=== PATIENT | female | born 1945 | race Caucasian/White ===

== ENCOUNTER 2023-10-17 10:02 | Inpatient (IN) | payer MEDICARE, SELFPAY ==
[2023-10-17] VITALS (12 sets, daily range): BP systolic 62–153; BP diastolic 40–72; PULSE 49–129; RESP 14–22; TEMP 35.9–36.6; O2SAT 98–100; BMI 21.3; BMI 21.9
--- NOTE | ~2023-10-17 | CT_ITS ---
EXAMINATION: CT ANGIOGRAM OF THE CHEST WITH AND WITHOUT CONTRAST (CT PULMONARY ANGIOGRAM FOR PE) CLINICAL INFORMATION: Reason for Exam new onset afib weakness, dizziness, elevated ddime COMPARISON: Previous chest x-ray from earlier the same day TECHNIQUE: Prior to contrast administration, noncontrast localization images were obtained. Subsequently, multidetector volumetric imaging was performed from the thoracic inlet to below the diaphragms following the administration of 65 mL Omnipaque 350 intravenous contrast. No contrast reaction reported Sagittal, coronal, and MIP oblique sagittal reformatted images were obtained on the CT workstation, uploaded to PACS, and reviewed. This CT examination was performed using dose optimization techniques as appropriate, variously including the following: *Automated exposure control *Adjustment of mA and/or kV according to patient size (this includes techniques or standardized protocols for targeted exams where dose is matched to indication/reason for exam; i.e. extremities or head) *Use of iterative reconstruction technique Total exam dose-length product 203 mGy-cm FINDINGS: QUALITY OF STUDY/CONTRAST BOLUS: Satisfactory. PULMONARY ARTERIES: No pulmonary emboli. THORACIC AORTA: No aneurysm. LUNG: Surgical staple line seen at the right lung apex and anterior right upper lobe. Small calcified bilateral upper lobe nodule suggestive of calcified granulomas, largest measuring 4 mm in the left upper lobe. Lungs are otherwise clear. PLEURA: No pleural effusion or pneumothorax. MEDIASTINUM: Normal heart size. No pericardial effusion. No hilar or mediastinal lymphadenopathy. No evidence of septal bowing or right heart strain. CORONARY ARTERY CALCIFICATION: Mild CHEST WALL/AXILLA: No axillary or internal mammary lymphadenopathy. OSSEOUS STRUCTURES: No acute or suspicious osseous abnormality. UPPER ABDOMEN: Unremarkable. No reflux of contrast into the hepatic veins to suggest elevated right heart pressures. CT/CT angio chest PE protocol IMPRESSION: No evidence of pulmonary embolism. VTE: negative
--- NOTE | ~2023-10-17 | XR_ITS ---
EXAMINATION: XR CHEST CLINICAL INFORMATION: Cough and fever COMPARISON: None available. TECHNIQUE: Frontal view of the chest was obtained. FINDINGS: The cardiac and mediastinal contours are normal. Dense bilateral upper lobe nodules suggestive of calcified granulomas. Lungs are otherwise clear. Surgical staple lines in the right mid lung and right lung apex. No pleural effusion or pneumothorax. Degenerative changes of the spine. XR/XR chest 1V IMPRESSION: No evidence for acute disease in the chest.
--- NOTE | 2023-10-17 10:26 | ECG_ITS ---
Test Reason : DIZZINESS Blood Pressure : / mmHG Vent. Rate : 000 BPM Atrial Rate : 000 BPM P-R Int : 000 ms QRS Dur : 000 ms QT Int : 000 ms P-R-T Axes : 000 000 000 degrees QTc Int : 000 ms No QRS complexes found, no ECG analysis possible No previous ECGs available Referred By: Marilin Knapp Electronically Signed By:
--- NOTE | 2023-10-17 10:27 | ED_ITS ---
HPI - General Adult General Chief complaint: General Medical Stated complaint: dizzy low bp Time Seen by Provider: 10/17/23 10:09 Source: patient and family Mode of arrival: ambulatory Limitations: no limitations History of Present Illness ED Provider: AMANDA AREVALO narrative: 78 yo female with PMH of HTN, HLD here with c/o having fever on Friday with nausea and vomiting weakness that has resolved no diarrhea no pain. No travel or sick contacts, no rash. She denies possiblity of tick bite. She came today as she still gets dizzy when standing which happened this AM and she still feels weak - urine is concentrated. No CP/SOB. MD complaint: dizziness with standing Onset (ago): day(s) (this AM ) Radiation: non-radiation Severity: moderate Quality: dull Relieving factors: none Exacerbating factors: movement Associated symptoms: malaise and weakness Treatments prior to arrival: none Related Data Allergies Allergy/AdvReac Type Severity Reaction Status Date / Time No Known Allergies Allergy Unverified 10/17/23 10:23 Review of Systems 2 Review of Systems: Constitutional : No Fever, No Chills, No Fatigue ENT/Mouth : No sore throat, No Rhinorrhea Eyes: No Eye Pain, No Swelling, No Redness Cardiovascular : No Chest Pain, No SOB, No Dyspnea on Exertion Respiratory : No Cough, No Sputum Gastrointestinal : No Nausea, No Vomiting, No Diarrhea, No abdominal Pain Genitourinary : No Dysuria, No Urinary Frequency, No Hematuria, Musculoskeletal : No joint pain, No Myalgias, No Joint Swelling Skin : No Skin Lesions, No rash Neuro : No Weakness, No Numbness, pos Dizziness, no Headache Psych : No Anxiety/Panic, No Depression All other systems reviewed and are negative [facility] Past Medical History Attestation statement: The following information was validated with the patient. Source: old records reviewed Medical History Hyperlipidemia HTN (hypertension) Social History Social History (Updated 10/17/23 @ 10:39 by Marilin Knapp DO) Patient Tobacco Use Status: Never used Tobacco Smoked in Last 30 Days: No Use of substances other than those prescribed or required for medical reasons: No Advance Directives: No Advance Directives Information Provided: Yes Do you have a plan to hurt others: No Plan Physical Exam ED Vital Signs: Vital Signs - 24 hr 10/17/23 10:21 10/17/23 10:53 10/17/23 10:54 Temperature 97.9 F Pulse Rate 104 H 80 129 H Respiratory Rate 16 Blood Pressure 131/67 106/64 95/62 Pulse Oximetry 99 Oxygen Delivery Method Room Air 10/17/23 10:56 10/17/23 12:08 10/17/23 14:27 Temperature 97.2 F Pulse Rate 49 L 95 59 Respiratory Rate 18 22 H Blood Pressure 62/40 L 120/60 118/51 L Pulse Oximetry 100 Oxygen Delivery Method Room Air 10/17/23 14:53 10/17/23 14:55 10/17/23 14:55 Temperature Pulse Rate 61 58 58 Respiratory Rate Blood Pressure 123/61 123/61 113/59 L Pulse Oximetry Oxygen Delivery Method 10/17/23 14:58 Temperature Pulse Rate 73 Respiratory Rate Blood Pressure 126/60 Pulse Oximetry Oxygen Delivery Method BMI result Body Mass Index 21.3 Appearance: Alert. Oriented X3. No acute distress. Eyes: Pupils equal, round and reactive to light. ENT: Pharynx mildly dry MM Neck: Normal inspection. Neck supple. CVS: tachycardic and irregular heart rate and rhythm. Pulses normal. Respiratory: No respiratory distress. Breath sounds normal. Abdomen: Soft and nontender. Skin: Skin warm and dry. Normal skin color. Normal skin turgor. Extremities: No lower extremity edema. No calf ttp Neuro: Oriented X 3. No motor deficit. No sensory deficit. Course Course Course Narrative: profoundly orthostatic 2L of IVF ordered - EKG afib Reevaluation(s) Reevaluation #1: infection suspected 1238pm has UTI ceftriaxone ordered Reevaluation #2: chadsvasc 2 score is 4 aware of plan for DOAC - no contraindications going in and out of afib will start on low dose toprol now that BP has improved Medications Administered Discontinued Medications Generic Name Dose Route Start Last Admin Trade Name Freq PRN Reason Stop Dose Admin Sodium Chloride 1,000 mls @ 999 mls/hr 10/17/23 10:26 10/17/23 14:46 Ns IV 10/17/23 11:26 999 mls/hr .Q1H1M ONE Administration Sodium Chloride 1,000 mls @ 999 mls/hr 10/17/23 11:14 10/17/23 11:29 Ns IV 10/17/23 12:14 999 mls/hr .Q1H1M ONE Administration Potassium Chloride 10 meq in 100 mls @ 100 mls/hr 10/17/23 11:45 10/17/23 14:31 Potassium Chloride/H20 IV 10/17/23 13:44 100 mls/hr Q1H HELEN Administration Iohexol 100 ml 10/17/23 14:02 10/17/23 14:02 Iohexol 350 Mg/Ml 100 Ml Infus..Btl IV 10/17/23 14:03 70 ml ONCE ONE Administration Metoprolol Succinate 12.5 mg 10/17/23 13:24 10/17/23 14:55 Metoprolol Succinate Er 12.5 Mg Halftab.Er.24h PO 10/17/23 13:25 Not Given ONCE ONE Protocol Potassium Chloride 40 meq 10/17/23 11:32 10/17/23 12:33 Potassium Chloride Packet 20 Meq Packet PO 10/17/23 11:33 40 meq ONCE ONE Administration Medical Decision Making Medical Decision Making MDM Narrative: 78 yo female with PMH of HTN, HLD here with recent viral syndrome now with positional dizziness when she stands at this time no CP/SOB will need labs, EKG for tachycardia and irregular HR - IVF, orthostatic VS. She has no neuro deficits to suggest stroke. Fever resolved but UA and CXR ordered no concern for tickborne illness. Differential Diagnosis Differential Diagnoses: The differential diagnosis associated with the presentation includes dehydration, orthostatics, anemia, viral syndrome, VTE less likely no CP/SOB EKG ordered HR is irregular Admission/Observation Consideration of admission/observation: Escalation of care including admission/observation considered intermittent rapid afib with dizziness will monitor overnight on tele ortho VS did improve with fluids Consult Healthcare Provider Management of the patient was discussed with: Hospitalist (will admit) Lab Data [facility] Lab Attestation statement: I reviewed the patient's lab results. 10/17/23 10:40 10/17/23 10:40 Labs: Lab Results 10/17/23 10/17/23 10/17/23 Range/Units 10:39 10:40 11:03 WBC 7.8 (4.8-10.8) X10*3/uL RBC 4.46 (4.20-5.50) X10*6/uL Hgb 13.4 (12.0-16.0) g/dl Hct 37.3 (37.0-47.0) % MCV 83.6 (80.0-98.0) fL MCH 30.0 (27.0-33.0) pg MCHC 35.9 H (31.0-35.0) g/dl RDW 12.3 (11.0-16.0) % Plt Count 194 (160-400) X10*3/uL MPV 10.6 (9.4-12.3) fL Immature Gran % (Auto) 0.5 H (0.0-0.4) % Neut % (Auto) 75.6 H (45-73) % Lymph % (Auto) 10.7 L (20-40) % [place] % (Auto) 12.5 H (2-11) % Eos % (Auto) 0.4 (0-4) % Baso % (Auto) 0.3 (0-2) % Lymph # (Auto) 0.8 L (1.2-4.9) X10*3/uL [place] # (Auto) 1.0 (0.1-1.2) X10*3/uL Eos # (Auto) 0.0 (0.0-0.4) X10*3/uL Baso # (Auto) 0.0 (0.0-0.2) X10*3/uL Abs Immat Gran (auto) 0.04 H (0.00-0.03) X10*3/uL Absolute Neuts (auto) 5.9 (2.0-8.3) x10*3/uL Absolute Nucleated RBC 0.000 (0.0-0.012) X10*3/uL Nucleated RBC % (auto) 0.0 (0.0-0.2) /100WBC D-Dimer High Sensitivty 491 NG/ML Sodium 131 L (135-145) mmol/L Potassium 2.8 L* (3.3-5.1) mmol/L Chloride 92 L (96-108) mmol/L Carbon Dioxide 28 (22-29) mmol/L Anion Gap 14 (12-20) BUN 27 H (9-16) mg/dL Creatinine 1.40 (0.5-1.4) mg/dL Estim Creat Clear Calc 28.6 Estimated GFR 36 Random Glucose 244 H (60-115) mg/dL Lactic Acid 1.3 (0.5-2.0) mmol/L Calcium 9.9 (8.4-10.2) mg/dL Magnesium 2.0 (1.6-2.6) mg/dL Total Bilirubin 0.6 (0.0-1.0) mg/dL Direct Bilirubin 0.2 (0.0-0.5) mg/dL AST 32 H (5-31) U/L ALT 26 (0-31) U/L Alkaline Phosphatase 58 (39-117) U/L Troponin I High Sens 13.9 (<3.5-17.0) ng/L B-Natriuretic Peptide 123 H (<100) pg/mL Total Protein 7.3 (6.5-8.0) g/dL Albumin 3.7 (3.5-5.0) g/dL Lipase 26 (8-78) U/L TSH 1.60 (0.32-4.0) uIU/mL Urine Color Urine Appearance Urine pH (5.0-9.0) Ur Specific [place] (1.005-1.025) Urine Protein (Neg-Trace) mg/dL Urine Glucose (UA) (Negative) mg/dL Urine Ketones (Negative) mg/dL Urine Blood (Negative) Urine Nitrite (Negative) Ur Leukocyte Esterase (Negative) Urine RBC (0-2) /HPF Urine WBC (0-5) /HPF Ur Squamous Epith Cells (0-2) /HPF Urine Bacteria (None Seen) Hyaline Casts (0-2) /LPF Influenza Type A (PCR) NEGATIVE (Negative) Influenza Type B (PCR) NEGATIVE (Negative) RSV RNA Qual (PCR) NEGATIVE (Negative) SARS-CoV-2 RNA (RT-PCR) NEGATIVE (Negative) 10/17/23 Range/Units 12:23 WBC (4.8-10.8) X10*3/uL RBC (4.20-5.50) X10*6/uL Hgb (12.0-16.0) g/dl Hct (37.0-47.0) % MCV (80.0-98.0) fL MCH (27.0-33.0) pg MCHC (31.0-35.0) g/dl RDW (11.0-16.0) % Plt Count (160-400) X10*3/uL MPV (9.4-12.3) fL Immature Gran % (Auto) (0.0-0.4) % Neut % (Auto) (45-73) % Lymph % (Auto) (20-40) % [place] % (Auto) (2-11) % Eos % (Auto) (0-4) % Baso % (Auto) (0-2) % Lymph # (Auto) (1.2-4.9) X10*3/uL [place] # (Auto) (0.1-1.2) X10*3/uL Eos # (Auto) (0.0-0.4) X10*3/uL Baso # (Auto) (0.0-0.2) X10*3/uL Abs Immat Gran (auto) (0.00-0.03) X10*3/uL Absolute Neuts (auto) (2.0-8.3) x10*3/uL Absolute Nucleated RBC (0.0-0.012) X10*3/uL Nucleated RBC % (auto) (0.0-0.2) /100WBC D-Dimer High Sensitivty NG/ML Sodium (135-145) mmol/L Potassium (3.3-5.1) mmol/L Chloride (96-108) mmol/L Carbon Dioxide (22-29) mmol/L Anion Gap (12-20) BUN (9-16) mg/dL Creatinine (0.5-1.4) mg/dL Estim Creat Clear Calc Estimated GFR Random Glucose (60-115) mg/dL Lactic Acid (0.5-2.0) mmol/L Calcium (8.4-10.2) mg/dL Magnesium (1.6-2.6) mg/dL Total Bilirubin (0.0-1.0) mg/dL Direct Bilirubin (0.0-0.5) mg/dL AST (5-31) U/L ALT (0-31) U/L Alkaline Phosphatase (39-117) U/L Troponin I High Sens (<3.5-17.0) ng/L B-Natriuretic Peptide (<100) pg/mL Total Protein (6.5-8.0) g/dL Albumin (3.5-5.0) g/dL Lipase (8-78) U/L TSH (0.32-4.0) uIU/mL Urine Color Yellow Urine Appearance Clear Urine pH 7.5 (5.0-9.0) Ur Specific [place] 1.010 (1.005-1.025) Urine Protein 30 (1+) H (Neg-Trace) mg/dL Urine Glucose (UA) Negative (Negative) mg/dL Urine Ketones Negative (Negative) mg/dL Urine Blood Small (1+) H (Negative) Urine Nitrite Negative (Negative) Ur Leukocyte Esterase Moderate (2+) H (Negative) Urine RBC 6-10 H (0-2) /HPF Urine WBC 21-50 H (0-5) /HPF Ur Squamous Epith Cells 0-2 (0-2) /HPF Urine Bacteria Trace (None Seen) Hyaline Casts 3-5 (0-2) /LPF Influenza Type A (PCR) (Negative) Influenza Type B (PCR) (Negative) RSV RNA Qual (PCR) (Negative) SARS-CoV-2 RNA (RT-PCR) (Negative) Independent Interpretation I performed an independent interpretation of an: EKG and Plain X-Ray Interpretation: Rate: 110 Rhythm: afib [place]: left Normal QRS complex. ST T wave : no QUINTIN, nonspecific ST T wave changes ant leads qTC: 433 prior studies: no prior The study has been interpreted contemporaneously by me. . Radiology Impression Discussion of test interpretation with radiology: I have reviewed the radiologist's reading. Independent Historian Clinical information obtained from an independent historian. History obtained from or confirmed by: Spouse Discharge Plan Discharge Clinical Impression: New onset a-fib, Orthostatic hypotension, Acute hypokalemia, Acute UTI, Dizziness Patient Disposition: Admitted As Inpatient Print Language: Czech
[2023-10-17 10:48] LABS: MANUAL DIFF FLAG NO
[2023-10-17 10:49] LABS: Basophils Percent Auto 0.3 % (0-2); Eosinophils Percent Auto 0.4 % (0-4); Hematocrit 37.3 % (37.0-47.0); Hemoglobin 13.4 g/dl (12.0-16.0); Imm Gran Abs Auto 0.04 X10*3/uL (0.00-0.03); Imm Gran Pct Auto 0.5 % (0.0-0.4); Lymphocytes Absolute Auto 0.8 X10*3/uL (1.2-4.9); Lymphocytes Percent Auto 10.7 % (20-40); Mean Corpuscular HGB Conc 35.9 g/dl (31.0-35.0); Mean Corpuscular Volume 83.6 fL (80.0-98.0); Mean Platelet Volume 10.6 fL (9.4-12.3); Monocytes Percent Auto 12.5 % (2-11); Neutrophils Absolute Auto 5.9 x10*3/uL (2.0-8.3); Neutrophils Percent Auto 75.6 % (45-73); Platelet Count 194 X10*3/uL (160-400); Red Blood Count 4.46 X10*6/uL (4.20-5.50); Red Cell Distribution Width 12.3 % (11.0-16.0); White Blood Count 7.8 X10*3/uL (4.8-10.8)
[2023-10-17 11:13] LABS: Troponin-I High Sensitivity 13.9 ng/L (<3.5-17.0)
[2023-10-17 11:21] LABS: D Dimer High Sensitivity 491 NG/ML
[2023-10-17 11:23] LABS: Lactic Acid 1.3 mmol/L (0.5-2.0)
[2023-10-17 11:24] LABS: B Type Natriuretic Peptide 123 pg/mL (<100)
[2023-10-17] MEDS: 0.9 % Sodium Chloride 1,000 ML 999 ML IV ×2 (11:29→14:46)
[2023-10-17 11:30] LABS: Alanine Aminotransferase 26 U/L (0-31); Albumin Level 3.7 g/dL (3.5-5.0); Alkaline Phosphatase 58 U/L (39-117); Anion Gap 14 (12-20); Aspartate Amino Transferase 32 U/L (5-31); Bilirubin Direct 0.2 mg/dL (0.0-0.5); Bilirubin Total 0.6 mg/dL (0.0-1.0); Blood Urea Nitrogen 27 mg/dL (9-16); Calcium 9.9 mg/dL (8.4-10.2); Carbon Dioxide 28 mmol/L (22-29); Chloride 92 mmol/L (96-108); Creatinine Clr Calc Pharmacy 28.6; Estimated Glomerular Filt Rate 36; Glucose Random 244 mg/dL (60-115); Lipase 26 U/L (8-78); Potassium 2.8 mmol/L (3.3-5.1); Sodium 131 mmol/L (135-145); Total Protein 7.3 g/dL (6.5-8.0)
[2023-10-17 11:32] LABS: Influenza A PCR NEGATIVE (Negative); Influenza B PCR NEGATIVE (Negative); Resp Syncy Virus RNA Qual PCR NEGATIVE (Negative); SARS COV2 PCR INHOUSE NEGATIVE (Negative)
[2023-10-17 12:30] LABS: Appearance Urine Clear; Color Urine Yellow; Glucose Urine UA Negative (Negative); Leukocyte Esterase Urine Moderate (2+) (Negative); Nitrite Urine Negative (Negative); PH 7.5 (5.0-9.0); UMIC TRIGGER UACC YES; Urine Blood Small (1+) (Negative); Urine Ketones Negative (Negative); Urine Protein 30 (1+) mg/dL (Neg-Trace)
[2023-10-17] MEDS: Potassium Chloride Packet 20 MEQ PACKET 40 MEQ PO (12:33)
[2023-10-17 12:35] LABS: Bacteria Urine Trace (None Seen); Squamous Epithelial Cell Urine 0-2 /HPF (0-2); UACC Culture Trigger YES; WBC Urine 21-50 /HPF (0-5)
[2023-10-17] MEDS: Potassium Chloride/H20 10 MEQ/100 ML PIGGYBACK 100 MEQ IV ×2 (12:40→14:31)
[2023-10-17] MEDS: iohexoL 350 MG/ML 100 ML INFUS..BTL IV (14:02)
--- NOTE | 2023-10-17 15:21 | PM.IMHP ---
History of Present Illness Date of Service: 10/17/23 Attending physician on admission: Josef Guzman Chief Complaint: Dizziness, weakness Pt is a 78-year-old female with a PMH significant for HTN and HLD?who presents to the ED with nausea, vomiting, dizziness, and lightheadedness x4 days. Patient reports symptoms began on Friday when she experienced nausea and vomiting. Called PCP the next day who told her to keep hydrated, but patient had a hard time following this advice as she did not feel like eating or drinking and continued to experience nausea though no more vomiting. Continue to take her medications, including her hydrochlorothiazide. Patient denies any sick contacts, no recent travel, and no ingestion of suspicious foods. No diarrhea. This morning patient felt dizzy and lightheaded upon standing and had difficulty walking. Called her PCP's office again who told her to come to the ED. Denies chest pain/pressure, palpitations. No shortness a breath or difficulty breathing. Denies orthopnea. No lower leg edema. Denies fever, chills, abdominal pain. In the ED pt was tachycardic up to 129, tachypneic up to 22, and with positive orthostatics. Labs were significant for elevated D-dimer of 491, sodium 131, potassium 2.8, chloride 92, BUN 27, creatinine 1.40, random glucose 244, AST 32, and BNP mildly elevated at 123. No leukocytosis. Stable H&H. Troponin 13.9. TSH 1.6. Tested negative for flu, RSV, COVID. UA positive for leukocyte esterase, RBC 6-10, wbc's 21-50, and trace bacteria. CXR showed no evidence for acute disease. CTA of chest?negative for pulmonary embolism. EKG demonstrated atrial fibrillation with RVR of [address] depression in leads V4 and V5. Pt was treated with 2L IVF, potassium chloride 20 mEq IV and 40 mEq p.o.., ceftriaxone, and started on Eliquis. Pt will be admitted to the hospital for treatment and further evaluation of new onset AFib with RVR, hypokalemia, and positive orthostatics in the setting of dehydration from GI losses, reduced p.o. intake, and continue diuretic use. Review of Systems Review of Systems: Nausea, vomiting Reduced p.o. intake, anorexia Lightheadedness, dizziness with standing and walking Denies palpitations, chest pain/pressure No shortness a breath or difficulty breathing Denies abdominal pain, diarrhea No fever, chills [facility] Medical History Hyperlipidemia HTN (hypertension) Social History Patient Tobacco Use Status: Never used Tobacco Smoked in Last 30 Days: No Use of substances other than those prescribed or required for medical reasons: No Advance Directives: No Advance Directives Information Provided: Yes Do you have a plan to hurt others: No Plan Meds Allergies Allergy/AdvReac Type Severity Reaction Status Date / Time No Known Allergies Allergy Unverified 10/17/23 10:23 Home Medications ?Medication ?Instructions ?Recorded ?Confirmed ?Last Taken ?Type amlodipine 5 mg tablet 5 mg PO DAILY 10/17/23 10/17/23 10/16/23 History ammonium lactate 12 % lotion 1 appl topical DAILY PRN dry, 10/17/23 10/17/23 Unknown History scaly skin simvastatin 20 mg tablet 20 mg PO BEDTIME 10/17/23 10/17/23 10/16/23 History triamterene 37.5 1 tab PO DAILY 10/17/23 10/17/23 10/16/23 History mg-hydrochlorothiazide 25 mg tablet Physical Exam Vital Signs and Narrative: Vital Signs: Last Vital Signs Temp 97.2 F 10/17/23 14:27 Pulse 73 10/17/23 14:58 Resp 22 H 10/17/23 14:27 BP 126/60 10/17/23 14:58 Pulse Ox 100 10/17/23 14:27 O2 Del Method Room Air 10/17/23 14:27 BMI result Body Mass Index 21.3 Constitutional: Alert, in no acute distress. Mental Status: Oriented to person, place and time. Eyes: Pupils are equal, round, and reactive to light. Ear, Nose, and Throat: Oropharynx clear, mucous membranes moist. Ears and nose without deformities. Trachea midline. Respiratory: Clear to auscultation bilaterally. No wheezing, rales, or rhonchi. Cardiovascular: S1, S2, regular rate and rhythm. No murmurs, rubs, or gallops. Gastrointestinal: Abdomen soft, non-tender, non-distended. Normal bowel sounds. Neurologic: Cranial nerves II-XII are grossly intact bilaterally. No focal neurological deficits. Moves all extremities spontaneously. Skin: Warm, dry. Extremities: No edema. Psychiatric: Normal mood and affect. Results Labs 10/17/23 10:40 10/17/23 10:40 Labs: Laboratory Results - last 24 hr 10/17/23 10/17/23 10/17/23 10:39 10:40 11:03 MCV 83.6 MCH 30.0 MCHC 35.9 H RDW 12.3 Plt Count 194 MPV 10.6 Immature Gran % (Auto) 0.5 H Neut % (Auto) 75.6 H Lymph % (Auto) 10.7 L Cotton % (Auto) 12.5 H Eos % (Auto) 0.4 Baso % (Auto) 0.3 Lymph # (Auto) 0.8 L [place] # (Auto) 1.0 Eos # (Auto) 0.0 Baso # (Auto) 0.0 Abs Immat Gran (auto) 0.04 H Absolute Neuts (auto) 5.9 Absolute Nucleated RBC 0.000 Nucleated RBC % (auto) 0.0 D-Dimer High Sensitivty 491 Anion Gap 14 Estim Creat Clear Calc 28.6 Estimated GFR 36 Random Glucose 244 H Lactic Acid 1.3 Calcium 9.9 Magnesium 2.0 Total Bilirubin 0.6 Direct Bilirubin 0.2 AST 32 H ALT 26 Alkaline Phosphatase 58 Troponin I High Sens 13.9 B-Natriuretic Peptide 123 H Total Protein 7.3 Albumin 3.7 Lipase 26 TSH 1.60 Urine Color Urine Appearance Urine pH Ur Specific [place] Urine Protein Urine Glucose (UA) Urine Ketones Urine Blood Urine Nitrite Ur Leukocyte Esterase Urine RBC Urine WBC Ur Squamous Epith Cells Urine Bacteria Hyaline Casts Influenza Type A (PCR) NEGATIVE Influenza Type B (PCR) NEGATIVE RSV RNA Qual (PCR) NEGATIVE SARS-CoV-2 RNA (RT-PCR) NEGATIVE 10/17/23 12:23 MCV MCH MCHC RDW Plt Count MPV Immature Gran % (Auto) Neut % (Auto) Lymph % (Auto) Cotton % (Auto) Eos % (Auto) Baso % (Auto) Lymph # (Auto) Cotton # (Auto) Eos # (Auto) Baso # (Auto) Abs Immat Gran (auto) Absolute Neuts (auto) Absolute Nucleated RBC Nucleated RBC % (auto) D-Dimer High Sensitivty Anion Gap Estim Creat Clear Calc Estimated GFR Random Glucose Lactic Acid Calcium Magnesium Total Bilirubin Direct Bilirubin AST ALT Alkaline Phosphatase Troponin I High Sens B-Natriuretic Peptide Total Protein Albumin Lipase TSH Urine Color Yellow Urine Appearance Clear Urine pH 7.5 Ur Specific [place] 1.010 Urine Protein 30 (1+) H Urine Glucose (UA) Negative Urine Ketones Negative Urine Blood Small (1+) H Urine Nitrite Negative Ur Leukocyte Esterase Moderate (2+) H Urine RBC 6-10 H Urine WBC 21-50 H Ur Squamous Epith Cells 0-2 Urine Bacteria Trace Hyaline Casts 3-5 Influenza Type A (PCR) Influenza Type B (PCR) RSV RNA Qual (PCR) SARS-CoV-2 RNA (RT-PCR) Imaging Radiologist's Impressions: Impressions Chest X-Ray 10/17/23 11:18 IMPRESSION: No evidence for acute disease in the chest. Chest CTA 10/17/23 14:03 IMPRESSION: No evidence of pulmonary embolism. VTE: negative Assessment and Plan (1) Acute hypokalemia: Status: Acute (2) Orthostatic hypotension: Status: Acute (3) New onset a-fib: Status: Acute Plan Pt is a 78-year-old female with a PMH significant for HTN and HLD?who presents to the ED with nausea, vomiting, dizziness, and lightheadedness x4 days. Pt will be admitted to the hospital for treatment and further evaluation of new onset AFib with RVR, hypokalemia, and positive orthostatics in the setting of dehydration from GI losses, reduced p.o. intake, and continue diuretic use. New onset AFib with RVR EKG showed atrial fibrillation with RVR of 110, HR as high as 130-140s in the ED In ED patient self converted back to normal sinus rhythm in the 60s without use of BB Will start on Eliquis 5 mg b.i.d., chads Vasc 2 score 4 Echocardiogram Cardiology consult Monitor on telemetry Orthostatic hypotension Orthostatics positive with BP 106/64 supine and 62/40 standing In the setting of dehydration secondary to N/V, reduced p.o. intake, and continued diuretic use since Friday Patient received 2 L IVF Hold antihypertensives, diuretics Repeat orthostatics in the morning Hypokalemia Potassium 2.8 at time of presentation In the setting of dehydration secondary to N/V, reduced p.o. intake, and continued diuretic use since Friday Patient received 20 mEq IV and 40 mEq p.o. in the ED Follow BMP Hyponatremia Sodium 131 at time of presentation In the setting of dehydration secondary to N/V, reduced p.o. intake, and continued diuretic use since Friday Follow BNP Hyperglycemia Random glucose elevated at 244 at time of presentation Will check A1c HTN Hold home antihypertensives for now Resume as warranted HLD Continue statin Full Code Attending:?Dr. Guzman DVT Prophylaxis: On Eliquis Pt will require a hospitalization of at least two nights for treatment of?new onset AFib with RVR, hypokalemia, and positive orthostatic hypotension in the setting of dehydration from GI losses, reduced p.o. intake, and continued diuretic use. Patient will require close monitoring of cardiac function, labs, electrolyte replenishment, and specialist consultation with Cardiology. Quality Stroke Does the patient have a stroke diagnosis?: No VTE Prior VTE?: No VTE Risk Level:: Medical - moderate - high VTE Device Contraindication: Treatment Not Indicated VTE Drug Contraindication: N/A - Med Ordered
[2023-10-17] MEDS: cefTRIAXone sodium 1 GM in 0.9 % Sodium Chloride 50 ML IV (15:45)
[2023-10-17] MEDS: Apixaban 5 MG TABLET PO ×2 (15:46→20:56)
--- NOTE | 2023-10-17 16:40 | PHA.MEDREC ---
Pharmacy Consult ? Medication Reconciliation Pharmacy has completed the medication reconciliation. Confirmed medications with patient.
[2023-10-17] MEDS: 0.9 % Sodium Chloride Flush 3 ML SYRINGE IVFLUSH (20:58)
[2023-10-18] VITALS: BP 161/73; PULSE 60; RESP 18; TEMP 36.2; O2SAT 99
[2023-10-18 04:00] VITALS: BP 159/70; RESP 20; TEMP 36.3; O2SAT 97
[2023-10-18 07:55] LABS: Anion Gap 12 (12-20); Blood Urea Nitrogen 20 mg/dL (9-16); Calcium 9.6 mg/dL (8.4-10.2); Carbon Dioxide 28 mmol/L (22-29); Chloride 103 mmol/L (96-108); Creatinine Clr Calc Pharmacy 43.4; Estimated Glomerular Filt Rate 59; Glucose Random 126 mg/dL (60-115); Potassium 3.5 mmol/L (3.3-5.1); Sodium 139 mmol/L (135-145)
[2023-10-18 07:56] LABS: Estimated Average Glucose 117 mg/dL; Hemoglobin A1c % 5.7 % (<6.0)
[2023-10-18 08:00] VITALS: BP 141/85; BP 152/67; PULSE 60; PULSE 68; RESP 20; TEMP 36.2; O2SAT 98
[2023-10-18] MEDS: 0.9 % Sodium Chloride Flush 3 ML SYRINGE IVFLUSH (08:43)
[2023-10-18] MEDS: Apixaban 5 MG TABLET PO (08:43)
[2023-10-18 08:46] VITALS: BP 127/60; PULSE 68
[2023-10-18 08:50] VITALS: BP 103/58; PULSE 77
--- NOTE | 2023-10-18 09:43 | MHC.CM.PN ---
IMM 10/17. Pt self-care, lives at home with her who will transport her home at discharge. Pt educated on HCP's, pt stated she will think about it and declined to complete one at this time. PCP: Dr. Joy Brumfield
--- NOTE | 2023-10-18 11:30 | CA_ITS ---
Transthoracic Echocardiogram Patient (Last, First, Middle): Cecily Finnegan, Gender: Female Date of : 1945 Age: 78 Procedure Date: 10/18/2023 Procedure Type: Transthoracic Echocardiogram Location: [facility] Height: 162.56 cm Weight: 57.61 kg BSA: 1.61 m2 Heart Rate: bpm BP: 103 / 58 mmHg Material Carrier: BRITNEY Referring MD: Sujatha NASCIMENTO Physical Security Engineer: Keenan Browne MD Symptoms: New onset AFib with RVR Study Quality: Adequate ECG Rhythm: Sinus Conclusions: - 1. Normal LV ejection fraction of 60 65% with impaired relaxation filling pattern 2. Mildly dilated left atrium 3. Mild aortic and mitral regurgitation 4. Normal RV systolic pressure 5. Trivial pericardial effusion Findings Left Ventricle Normal left ventricular size, thickness, and systolic function. The visually estimated ejection fraction is between 60-65%. Spectral Doppler is indicative of an impaired relaxation filling pattern. E/E prime ratio is between 8 and 15 consistent with indeterminate filling pressures. Peak GLS is -19.4%, within normal limits. Right Ventricle Normal right ventricular cavity size and systolic function. Atria The left atrium is mildly dilated. There is no evidence of interatrial shunt. The right atrium is normal in size. Aortic Valve There is mild calcification of the aortic valve. There is mild thickening of the aortic valve. There is no aortic valve stenosis. There is mild aortic valve regurgitation. Mitral Valve There is mild anterior and moderate posterior mitral leaflet thickening. The posterior mitral leaflet has restricted mobility. There is mild mitral annular calcification. There is mild mitral valve regurgitation. There is no mitral valve stenosis. Pulmonic Valve The pulmonic valve is likely normal. Tricuspid Valve Normal tricuspid valve structure. There is mild tricuspid valve regurgitation. The right ventricular systolic pressure is normal. The right ventricular systolic pressure is 28 mmHg. Normal right atrial pressure. There is no evidence of pulmonary hypertension. Great Vessels All visible segments of the aorta are normal in size. The pulmonary artery was not well visualized. Moderate plaque is seen in the sino tubular ridge. Venous The inferior vena cava is normal in size and collapses greater than 50% with inspiration. Pericardium/Pleural There is a trivial loculated pericardial effusion overlying the left ventricle. Prior Study Comparison No prior study available for comparison. Measurements 2D Linear Measurements IVSd: 0.81 0.6-0.9/0.6-1.0 cm LVIDd: 5.30 3.9-5.3/4.2-5.9 cm LVIDd Index: 3.29 2.4-3.2/2.2-3.1 cm/m2 LVIDs: 3.40 2.0-3.6 cm LVPWd: 0.87 0.7-1.1 cm LA Diam: 3.50 2.7-3.8/3.0-4.0 cm LAIDs Index: 2.17 1.5-2.3 cm/m2 LV Mass: 197.32 67-162/88-224 g LV Mass Index: 122.56 43-95/49-115 g/m2 LVOT Diam: 2.10 3.0+(-)1.3 cm 2D Systolic Function EF 4C: 64.30 >55% EF 2C: 60.50 >55% EF BiP: 62.90 >55% Mitral Valve MV Pk E: 0.76 MV PK A: 0.66 MV Decel Time: 186.00 E/A: 1.10 E'Lateral: 7.51 E'Medial: 6.74 E/E' Med: 11.20 E/E' Lat: 10.10 PHT: 54.00 MVA PHT: 4.07 Decel Gladwin: 4.09 Aortic Valve AoV Pk Morgan: 1.97 AoV Mn Morgan: 1.40 AoV VTI: 0.49 AoV Pk Grad: 16.00 Aov Mn Grad: 9.00 ARUN Cont.VTI: 2.14 AI Pk Morgan: 4.23 AI Gladwin: 2.11 LVOT LVOT Pk Morgan: 1.16 LVOT Mn Morgan: 0.85 LVOT VTI: 0.30 LVOT Pk Grad: 5.00 LVOT Mn Grad: 3.00 LVOT Diam: 2.10 LVOT Area: 3.46 Diastolic Function MV Pk E: 0.76 MV Pk A: 0.66 E/A: 1.10 E'Medial: 6.74 E/E' Med: 11.20 E' Laterial: 7.51 E/E' Lat: 10.10 Right Ventricle TAPSE (mm): 20.70 TVS' Morgan: 12.00 Tricuspid Valve TR Pk Morgan: 2.52 TR Pk Grad: 25.00 RA Press: 3.00 RVSP: 28.00 Great Vessels Aorta Sinus of Valsalva: 2.97 2.0-3.[address] Ridge: 2.71 1.7-3.4 cm Ao Asc: 3.10 2.1-3.4 cm Updated in Other Vendor System with Status of Final Keenan Browne MD electronically signed on 10/19/2023 11:34:13 AM with status of Final
[2023-10-18 12:00] VITALS: BP 155/71; PULSE 52; RESP 20; TEMP 36.3; O2SAT 100
--- NOTE | 2023-10-18 12:50 | P.CONCA_ITS ---
History of Present Illness History of Present Illness Date of Service: 10/18/23 Requesting physician: Josef Guzman Consult reason: atrial fibrillation and other (Orthostatic hypotension) Chief complaint: New onset Afib/w- RVR, Hypokalemia, orthostatic hy Narrative: I was consulted to see Cecily in cardiology consultation today for new onset atrial fibrillation. She is extremely pleasant 78-year-old female with prior history of hypertension, no significant past cardiac history. She is accompanied by at bedside. Patient said last Friday she developed fever at 103 degrees F and significant vomiting. Over time the fever and vomiting subsided but she continued to have poor appetite and she has not eating well or drinking well. She had no urinary symptoms. She then started having symptoms of lightheadedness and then Friday her symptoms got severely worse and she got a primary care physician advised to come to the emergency room. She came here and was noted to be significant orthostatic hypotension also noted to have new onset atrial fibrillation. She was then given rate control and she converted back to sinus rhythm spontaneously. She has been started on oral anticoagulation therapy with Eliquis. She also be given IV fluids. She has been diagnose UTI. She currently feels well and wants to go home. She had no chest pain, palpitations, syncope, shortness of breath, orthopnea, PND. Does not recall ever having atrial fibrillation in the past. Review of Systems 2 Constitutional: Constitutional: Denies body ache(s), Reports fever(s) and Reports weakness Eyes: Eyes: Reports no additional eye complaints Cardiovascular: Cardiovascular: Denies chest pain, Reports lightheadedness, Denies Loss of Consciousness, Denies palpitations, Denies dyspnea, Denies dyspnea on exertion and Denies orthopnea Respiratory: Respiratory: Denies dyspnea and Denies dyspnea on exertion Gastrointestinal: Gastrointestinal: Reports no additional gastrointestinal complaints Genitourinary: Genitourinary: Reports no additional female genitourinary complaints Musculoskeletal: Musculoskeletal: Reports no additional musculoskeletal complaints Neurologic: Reports system reviewed and no additional complaints, except as documented and Reports weakness Endocrine: Endocrine: Denies palpitations PMFSH Past Medical History Medical History Hyperlipidemia HTN (hypertension) Social History Social History Household Members: Spouse Housing: House Do you presently have visiting nurse or other home services: No Patient Tobacco Use Status: Never used Tobacco Smoked in Last 30 Days: No Use of substances other than those prescribed or required for medical reasons: No Currently Displaying Signs/Symptoms of Drug Intoxication Withdrawal: No Have you been hit, kicked, punched, or otherwise hurt by someone within the past year? If so, by whom?: No Do you feel safe in your current relationship?: Yes Is there a partner from a previous relationship who is making you feel unsafe now?: No Are you made to feel afraid or neglected: No Advance Directives: No Advance Directives Information Provided: Yes Do you have a plan to hurt others: No Plan Recently lost weight without trying: No Eating poorly because of decreased appetite: No Patient : No service: No Meds Allergies Allergy/AdvReac Type Severity Reaction Status Date / Time No Known Allergies Allergy Unverified 10/17/23 10:23 Active Medications: Current Medications Acetaminophen (Acetaminophen 325 Mg Tablet) 650 mg PO Q6H PRN PRN Reason: Pain, Mild (Pain Scale 1-3), fever or headache Apixaban (Apixaban 5 Mg Tablet) 5 mg PO BID [facility] Last Admin: 10/18/23 08:43 Dose: 5 mg Benzonatate (Benzonatate 100 Mg Capsule) 100 mg PO TID PRN PRN Reason: Cough Calcium Carbonate (Calcium Carbonate 750 Mg Tab.Chew) 750 mg PO Q4H PRN PRN Reason: Heartburn Magnesium Hydroxide (Milk Of Magnesia 30 Ml Oral.Susp) 30 ml PO DAILY PRN PRN Reason: Constipation Melatonin (Melatonin 3 Mg Tablet) 6 mg PO BEDTIME PRN PRN Reason: Insomnia Ondansetron HCl (Ondansetron Hcl 4 Mg/2 Ml Vial) 4 mg IVPUSH Q8H PRN PRN Reason: Nausea and Vomiting Sodium Chloride (0.9 % Sodium Chloride Flush 3 Ml Syringe) [address] [facility] Last Admin: 10/18/23 08:43 Dose: 3 ml Home Medications ?Medication ?Instructions ?Recorded ?Confirmed ?Last Taken ?Type amlodipine 5 mg tablet 5 mg PO DAILY 10/17/23 10/17/23 10/16/23 History ammonium lactate 12 % lotion 1 appl topical DAILY PRN dry, 10/17/23 10/17/23 Unknown History scaly skin simvastatin 20 mg tablet 20 mg PO BEDTIME 10/17/23 10/17/23 10/16/23 History triamterene 37.5 1 tab PO DAILY 10/17/23 10/17/23 10/16/23 History mg-hydrochlorothiazide 25 mg tablet Physical Exam 2 Vital Signs: Vital Signs: Last Vital Signs Temp 97.3 F 10/18/23 12:00 Pulse 52 10/18/23 12:00 Resp 20 10/18/23 12:00 BP 155/71 H 10/18/23 12:00 Pulse Ox 100 10/18/23 12:00 O2 Del Method Room Air 10/18/23 12:00 BMI result Body Mass Index 21.9 Const: General: cooperative, comfortable, no acute distress, alert, awake and Physically active Nutritional Appearance: thin Orientation/consciousness: patient oriented x3 Limitations: no limitations HEENT: Head: Yes normocephalic and Yes atraumatic Neck: Neck: Yes trachea midline, Yes supple and Yes no JVD Resp: Effort & Inspection: normal respiratory effort Auscultation: clear to auscultation bilaterally Cardio: Jugular venous distension: no JVD Palpation: normal PMI Rate: r egular rate Rhythm: regular rhythm Heart sounds: S1 normal heart sound present, S2 normal heart sound present, no click, no gallops, Murmur heart sound present systolic early and no rubs GI: Auscultation: normal bowel sounds Skin: General skin exam: no rashes or lesions noted Neuro: General: patient oriented x3 and no focal motor deficits Extrem: General: Yes no clubbing, cyanosis or edema Objective Labs and Meds 10/17/23 10:40 10/18/23 06:26 Lab results: Laboratory Results - last 24 hr 10/18/23 06:26 Sodium 139 Potassium 3.5 D Chloride 103 Carbon Dioxide 28 Anion Gap 12 BUN 20 H Creatinine 0.92 Estim Creat Clear Calc 43.4 Estimated GFR 59 Random Glucose 126 H Estimat Average Glucose 117 Hemoglobin A1c % 5.7 Calcium 9.6 Imaging Radiologist's impression: Impressions Chest CTA 10/17/23 14:03 IMPRESSION: No evidence of pulmonary embolism. VTE: negative Assessment and Plan (1) New onset a-fib: Status: Acute New onset atrial fibrillation this elderly woman with risk factors of age as well as hypertension in the setting of acute medical situation and condition with UTI as well as orthostatic hypotension. She also had hypokalemia on admission. This has reverted back to normal sinus rhythm. She was asymptomatic about this episode. Likely that she could have episodes of atrial fibrillation. Agree with oral anticoagulation with Eliquis. Also agree with low-dose metoprolol therapy. Echocardiogram is pending. Will set up for outpatient follow-up after Holter monitor. (2) Orthostatic hypotension: Status: Acute Symptoms of dizziness related to orthostatic hypotension. This has not resolved with IV hydration. Most likely related to poor oral intake and acute infection. Continue to push oral aggressive IV hydration. Noted to be hypertensive at this point time. Will restart her amlodipine therapy. Orthostatic precautions were discussed. Will set up for outpatient follow-up. Thank you for allowing me to partake in the care Procedures Date of Service Date of Service: 10/18/23
--- NOTE | 2023-10-18 13:49 | PM.DS ---
DS: Providers Provider Date of Service: 10/18/23 Date of admission: 10/17/23 16:51 Primary care physician: Joy Brumfield MD Consults: 10/17/23 16:25 Consult to Cardiology Routine Consulting Provider: [facility] Reason for consultation: New onset AFib w/RVR DS: Diagnosis Discharge Diagnosis (1) New onset a-fib: Status: Acute (2) Orthostatic hypotension: Status: Acute DS: Summary Hospital Course Hospital Course: History of presenting illness: Date of Service: 10/17/23 Attending physician on admission: Josef Guzman Chief Complaint: Dizziness, weakness Pt is a 78-year-old female with a PMH significant for HTN and HLD?who presents to the ED with nausea, vomiting, dizziness, and lightheadedness x4 days. Patient reports symptoms began on Friday when she experienced nausea and vomiting. Called PCP the next day who told her to keep hydrated, but patient had a hard time following this advice as she did not feel like eating or drinking and continued to experience nausea though no more vomiting. Continue to take her medications, including her hydrochlorothiazide. Patient denies any sick contacts, no recent travel, and no ingestion of suspicious foods. No diarrhea. This morning patient felt dizzy and lightheaded upon standing and had difficulty walking. Called her PCP's office again who told her to come to the ED. Denies chest pain/pressure, palpitations. No shortness a breath or difficulty breathing. Denies orthopnea. No lower leg edema. Denies fever, chills, abdominal pain. In the ED pt was tachycardic up to 129, tachypneic up to 22, and with positive orthostatics. Labs were significant for elevated D-dimer of 491, sodium 131, potassium 2.8, chloride 92, BUN 27, creatinine 1.40, random glucose 244, AST 32, and BNP mildly elevated at 123. No leukocytosis. Stable H&H. Troponin 13.9. TSH 1.6. Tested negative for flu, RSV, COVID. UA positive for leukocyte esterase, RBC 6-10, wbc's 21-50, and trace bacteria. CXR showed no evidence for acute disease. CTA of chest?negative for pulmonary embolism. EKG demonstrated atrial fibrillation with RVR of [address] depression in leads V4 and V5. Pt was treated with 2L IVF, potassium chloride 20 mEq IV and 40 mEq p.o.., ceftriaxone, and started on Eliquis. Pt will be admitted to the hospital for treatment and further evaluation of new onset AFib with RVR, hypokalemia, and positive orthostatics in the setting of dehydration from GI losses, reduced p.o. intake, and continue diuretic use. Hospital course: 78-year-old female with a PMH significant for HTN and HLD?who presents to the ED with nausea, vomiting, dizziness, and lightheadedness x4 days and diagnosed to have new onset AFib with RVR, hypokalemia, and positive orthostatics in the setting of dehydration from GI losses, reduced p.o. intake, acute UTI and continued diuretic use. New onset AFib with RVR , in ED EKG showed atrial fibrillation with RVR of 110, HR as high as 130-140s ,self converted back to normal sinus rhythm in the 60s without use of BB, placed on Eliquis 5 mg b.i.d., chads Vasc 2 score 4, had normal TSH Echocardiogram preliminary report showed normal EF, mild MR and AI, patient evaluated by dry wall sprayer they recommend to discharge patient home with outpatient follow-up with cardiology and Holter monitor, in regard to orthostatic hypotension patient treated with IV fluids diuretics were held , repeat orthostatic blood pressures are positive but patient is asymptomatic therefore she is being discharged home on Norvasc 5 mg daily and diuretics have been discontinued, orthostatic precautions discussed with patient, Acute hypokalemia repleted was likely due to GI loss and use of diuretics, acute hyponatremia resolved with IV fluid was likely hypovolemic hyponatremia with GI loss and decreased by mouth intake with concurrent use of diuretics, patient also noted to have transient hyperglycemia, hemoglobin A1c is 5.7 with a average glucose of 117, she is recommended to continue statins. Acute UTI patient noted to have significantly positive urinalysis urine culture growing Gram-negative nani patient is asymptomatic will treat her with total 5 day course of antibiotics. Time Attestation Discharge Coordination Time (in mins): 40 Quality: Safe Use of Opioids Does Pt have an Active Cancer Diagnosis on the Problem List?: No Quality: Stroke Does the patient have a stroke diagnosis?: No Physical Exam Vital Signs: Vital Signs: Last Vital Signs Temp 97.3 F 10/18/23 12:00 Pulse 52 10/18/23 12:00 Resp 20 10/18/23 12:00 BP 155/71 H 10/18/23 12:00 Pulse Ox 100 10/18/23 12:00 O2 Del Method Room Air 10/18/23 12:00 BMI result Body Mass Index 21.9 Const: Other: General in no acute distress. Anicteric sclera Neck is supple no JVD. CVS regular rate rhythm, Respiratory lungs clear to auscultation, no respiratory distress, no wheeze, no rhonchi. Gastrointestinal abdomen soft, non tender, bowel sounds audible. Extremities no edema. Neuro non focal Skin no rash Psych appropriate affect DS: Data Data Completed and Pending Labs on day of discharge: Laboratory Results - last 24 hr 10/18/23 06:26 Sodium 139 Potassium 3.5 D Chloride 103 Carbon Dioxide 28 Anion Gap 12 BUN 20 H Creatinine 0.92 Estim Creat Clear Calc 43.4 Estimated GFR 59 Random Glucose 126 H Estimat Average Glucose 117 Hemoglobin A1c % 5.7 Calcium 9.6 Preliminary micro results at discharge 10/17/23 Unknown Urine Culture - Preliminary Urine clean catch - Urine quezada top Gram negative nani Discharge Plan Discharge Anticipated Discharge Date/Time: 10/18/23 13:44 Patient Disposition: Home, Self-Care Discharge Diagnosis: New onset atrial fibrillation Hypokalemia Orthostatic hypotension Referrals: Joy Brumfield MD [Primary Care Provider] - 1 Week Discharge Medications: New Eliquis 5 mg Tablet 5 mg PO BID Qty: 60 0RF cefuroxime axetil 250 mg tablet 250 mg PO BID Qty: 10 0RF Continued ammonium lactate 12 % lotion 1 appl topical DAILY PRN (Reason: dry, scaly skin) amlodipine 5 mg tablet 5 mg PO DAILY simvastatin 20 mg tablet 20 mg PO BEDTIME Discontinued triamterene-hydrochlorothiazid 37.5-25 mg tablet 1 tab PO DAILY Discharge Orders: Discharge Order (Routine); Ordered 10/18/23 Ordered By: Josef Guzman Diet: Advance to usual diet Activity on Discharge: As tolerated Stand Alone Forms: Patient Portal Discharge page Print Language: Yi Care Plan Goals: Take Eliquis 5 mg twice daily for stroke prevention, notify MD if noted to have unsteady gait or high fall risk,or any bleeding. Return to check symptoms of lightheadedness or dizziness Take by mouth antibiotic for urinary tract infection Ceftin 250 mg b.i.d. for 5 days, drink plenty of fluids Follow orthostatic precautions as discussed get up slowly from sitting position, do not ambulate if lightheaded or dizzy, drink plenty of fluids. Health Concerns: Orthostatic hypotension/atrial fibrillation Plan of Treatment: Outpatient follow-up with dry wall sprayer Dr Browne call for appointment if there office do not reach out to you. Assessment: As above Discharge Date/Time: 10/18/23 14:36
--- NOTE | 2023-10-18 14:56 | MHC.CM.PN ---
Pt is medically cleared for discharge home self-care, pts will transport her home.
== END 2023-10-18 14:36 | disposition home or self-care (01) | DRG 312 ==
LOC: HO.ED 13:35 → HO.EDOVER 17:08 → HO.IMC 18:21
PROVIDERS: Admitting Provider Student in an Organized Health Care Education/Training Program; Emergency Provider Emergency Medicine; PCP Internal Medicine; Visit Provider Hospitalist
DX: I95.1 Orthostatic hypotension (principal); N39.0 Urinary tract infection, site not specified; E87.1 Hypo-osmolality and hyponatremia; E87.6 Hypokalemia; I10 Essential (primary) hypertension; E78.5 Hyperlipidemia, unspecified; E86.1 Hypovolemia; I48.91 Unspecified atrial fibrillation; Z20.822 Contact with and (suspected) exposure to COVID-19; Z79.899 Other long term (current) drug therapy
CPT/HCPCS: 0241U; 36415; 71045; 71275; 80048; 80076; 81001; 83036; 83605; 83690; 83735; 83880; 84443; 84484; 85025; 85379; 87086; 87088; 87186; 93005; 93306; 99285; J0696; J3480; Q9967

== ENCOUNTER 2023-10-17 16:51 | Outpatient (BNV) | payer MEDICARE, SELFPAY | END 2023-10-18 11:30 | PROVIDERS: Admitting Provider Student in an Organized Health Care Education/Training Program; Emergency Provider Emergency Medicine; PCP Internal Medicine; Visit Provider Internal Medicine Cardiovascular Disease | DX: I35.1 Nonrheumatic aortic (valve) insufficiency (principal); I34.0 Nonrheumatic mitral (valve) insufficiency; I36.1 Nonrheumatic tricuspid (valve) insufficiency | CPT/HCPCS: 93306; 93356 ==

== ENCOUNTER → 2023-10-17 16:51 | Outpatient (BNV) | payer MEDICARE, SELFPAY | PROVIDERS: Admitting Provider Student in an Organized Health Care Education/Training Program; Emergency Provider Emergency Medicine; PCP Internal Medicine; Visit Provider Internal Medicine Cardiovascular Disease | DX: I48.91 Unspecified atrial fibrillation (principal); I95.1 Orthostatic hypotension | CPT/HCPCS: 99222 ==

== ENCOUNTER → 2023-10-17 16:51 | Outpatient (BNV) | payer MEDICARE, SELFPAY | PROVIDERS: Admitting Provider Student in an Organized Health Care Education/Training Program; Emergency Provider Emergency Medicine; PCP Internal Medicine; Visit Provider Student in an Organized Health Care Education/Training Program | DX: E87.6 Hypokalemia (principal); I95.1 Orthostatic hypotension; I48.91 Unspecified atrial fibrillation | CPT/HCPCS: 99223; 99239 ==

== ENCOUNTER → 2023-11-07 10:34 | Outpatient (REF) | payer MEDICARE, SELFPAY ==
--- NOTE | 2023-11-07 10:38 | HM_ITS ---
Conclusion: 1. Patient was monitored for total period of 3 days 2. Baseline was normal sinus rhythm with average heart of 60 beats per minute 3. No significant pauses noted but frequent sinus bradycardia noted with 59% of time heart rate below 60 beats per minute 4. Occasional PACs noted 5. No patient reported events MTDD
== END ==
LOC: HO.CARD 10:34
PROVIDERS: PCP Internal Medicine; Visit Provider Internal Medicine Cardiovascular Disease
DX: I48.91 Unspecified atrial fibrillation (principal); I95.1 Orthostatic hypotension; R42 Dizziness and giddiness
CPT/HCPCS: 93242

== ENCOUNTER → 2023-11-07 10:38 | Outpatient (BNV) | payer MEDICARE, SELFPAY | PROVIDERS: PCP Internal Medicine; Visit Provider Internal Medicine Cardiovascular Disease | DX: R00.1 Bradycardia, unspecified (principal) | CPT/HCPCS: 93244 ==

== ENCOUNTER → 2023-12-10 08:15 | Outpatient (REF) | payer MEDICARE, SELFPAY ==
--- NOTE | ~2023-12-10 | NM_ITS ---
Lexiscan Myocardial perfusion study Indication: Abnormal EKG Technique: The patient was brought in for a Lexiscan perfusion study on 12/10/2023 and was injected 0.4 mg of Lexiscan intravenously. Within a minute of this injection 25 mCi of sestamibi was given intravenously. Images were obtained using the SPECT gamma camera interlaced with the gating device. Images were obtained in supine position. Resting perfusion study was performed on 12/11/2023. Patient was administered 25 mCi of sestamibi intravenously at rest. Images were then obtained in supine position. Total DLP 77mGy-cm. Images were processed with the software and compared side to side in short axis, horizontal long axis and vertical long axis views. Findings: Raw acquisition reviewed. The stress perfusion study showed no significant perfusion abnormality. Both uncorrected as well as CT attenuation corrected images were reviewed. The gated study shows normal LV systolic function with calculated LVEF of 56%. LV cavity is normal in size. The gated study shows normal wall thickening and contraction of segments. Resting study shows no significant perfusion abnormality. Gating at rest reveals normal wall motion with ejection fraction at 60%. The findings are consistent with no clearly reversible or fixed perfusion abnormality. NM/NM cardiolite stress test Impression: 1. Myocardial perfusion imaging study shows normal myocardial perfusion. 2. Gated LVEF is 56% during stress and 60% during rest. 3. Transient ischemic dilatation not present. EKG component of the test reported separately. Electronically signed by: Tanner Colón MD 12/11/2023 12:23 PM EDT
--- NOTE | 2023-12-10 08:20 | CA_ITS ---
Acquisition Time: 2023-12-10 08:32:46 Total Exercise Time: 00:04:12 Test Indications: Abnormal ECG AFIB Medications: ELIQUIS AMLODIPINE ROSUVASTATIN Protocol: UMBERTO Max HR: 106 BPM 74% of Pred: 142 BPM Max BP: 140/068 mmHG Max Work Load: 5.4 METS Exercise stress test exercise 4 min 12 sec of Umberto protocol (stage 2 manually increase) achieving 65% MPHR, with mild SOB, no chest discomfort, with vencitular bigeminy, isolated PVCs and PACs, with non diagnoisitic EKGs. Test changed to pharmacological stress test with Lexiscan injection while walking slowly on the treadmill, with mild SOB, no chest discomfort, with vencitular bigeminy, isolated PVCs, vencitular cuplet, isolated PACs (reported palpitations), with normotesnive response to exercise, with nondiagnoisitic EKGs. Aminophylline 75mg IVP given to reverse Lexiscan Nuclear images pending. Test reviewed with Dr. Cohen. Patient reported tro feel a palpitation like feeling during venticular bigeminy. Referred By: Keenan Browne Overread By: Kaylee Johnson
== END ==
LOC: HO.CARD 08:15
PROVIDERS: PCP Internal Medicine; Visit Provider Internal Medicine Cardiovascular Disease
DX: I48.91 Unspecified atrial fibrillation (principal); R42 Dizziness and giddiness; I95.1 Orthostatic hypotension
CPT/HCPCS: 78452; 93017; A9500; J0280; J2785

== ENCOUNTER → 2023-12-10 08:20 | Outpatient (BNV) | payer MEDICARE, SELFPAY | PROVIDERS: PCP Internal Medicine; Visit Provider Nurse Practitioner | DX: R94.31 Abnormal electrocardiogram [ECG] [EKG] (principal) | CPT/HCPCS: 78452; 93016; 93018 ==

== ENCOUNTER 2023-12-15 12:15 | Outpatient (AMB) | payer MEDICARE, SELFPAY ==
--- NOTE | 2023-12-15 12:30 | A.OFFVIS_ITS ---
Vital Signs 12/15/23 12:31 Height 5 ft 4 in Weight 127 lb 13.89 oz BMI 21.9 BP 138/72 Blood Pressure Location Lt brachial Position Sitting Pulse 62 Intake Visit Reasons: s/p [facility] [place] testing f/up Intake Note: Follow-up [facility] [place] dc and testing feeling good ? 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 Since then she has been doing well. She was also noted during hospitalization to have new onset atrial fibrillation. This converted to sinus rhythm with rate control. She has remained without any obvious clinical recurrence of atrial fibrillation. Holter monitor did not show any evidence of recurrent atrial fibrillation. Myocardial perfusion imaging was within normal limits. Echocardiogram shows normal LV ejection fraction 60 65% with mild left atrial enlargement mild aortic and mitral regurgitation. She takes her medications. Blood pressure at home in the range of 120-130 systolic. She denies any prolonged palpitation irregular heartbeat. No lightheadedness, syncope. No exertional chest pain. No heart failure symptoms. No bleeding issues or neurologic events. [facility] Medical History (Updated 12/15/23 @ 12:49 by Keenan Browne MD) Acute UTI Orthostatic hypotension New onset a-fib Hyperlipidemia HTN (hypertension) Surgical History (Updated 12/15/23 @ 12:36 by MARGARITO Miner) History of lung surgery Family History (Updated 12/15/23 @ 12:36 by MARGARITO Miner) Father Diabetes Mother No problems noted. Social History Household Members: Spouse Housing: House Do you presently have visiting nurse or other home services: No Patient Tobacco Use Status: Never used Tobacco service: No Review of Systems Const Denies chills, Denies fatigue, Denies fever(s), Denies frequent falls, Denies weakness, Denies weight gain and Denies weight loss ENT Denies dizziness Card Denies chest pain, Denies leg edema, Denies lightheadedness, Denies palpitations, Denies dyspnea, Denies dyspnea on exertion, Denies orthopnea and Denies other (loss of consciousness) Resp Denies cough, Denies dyspnea and Denies dyspnea on exertion GI Denies hematochezia and Denies change in stool character Musc Denies abnormal gait, Denies muscle weakness, Denies numbness, Denies radiating pain into limb and Denies tingling Neuro Denies abnormal gait, Denies dizziness, Denies frequent falls, Denies numbness, Denies tingling and Denies weakness Endo Denies fatigue and Denies palpitations Physical Exam Vital Signs: Last Vital Signs Pulse 62 12/15/23 12:31 BP 138/72 12/15/23 12:31 BMI result Body Mass Index 21.9 Const General: cooperative, comfortable, no acute distress, alert, awake, Physically active and well groomed Nutritional Appearance: average body habitus Orientation/consciousness: patient oriented x3 Neck Neck: Yes trachea midline, Yes supple and Yes no JVD Resp Effort & Inspection: normal respiratory effort Auscultation: clear to auscultation bilaterally Cardio Jugular venous distension: no JVD Palpation: normal PMI Rate: regular rate Rhythm: regular rhythm Heart sounds: S1 normal heart sound present, S2 normal heart sound present, no click, no gallops and Murmur heart sound present systolic GI Auscultation: normal bowel sounds Skin General skin exam: no rashes or lesions noted Neuro General: patient oriented x3 and no focal motor deficits Assessment & Plan Assessment & Plan (1) Paroxysmal atrial fibrillation: Code(s): I48.0 - Paroxysmal atrial fibrillation Category: Medical Plan: Paroxysmal atrial fibrillation without any obvious clinical recurrence. She has multiple risk factors for recurrent atrial fibrillation including left atrial enlargement, advanced age and hypertension has underlying risk factors. I would continue to use oral anticoagulation with Eliquis to reduce risk of thromboembolic complication. CHADSVASc score of 3. Would avoid any rate low ering medication given her Holter monitor showing frequent sinus bradycardia. She was no symptoms at this point time advised to call me with any new symptoms. No indication for antiarrhythmic drug therapy at this point time. (2) HTN (hypertension): Code(s): I10 - Essential (primary) hypertension Category: Medical Plan: Hypertension which is currently well optimized. She is currently not having any orthostatic symptoms. Continue amlodipine therapy. Advised to intermittently monitor blood pressure at home and maintain a log. Goal blood pressure less than 130/84. Consider switching her simvastatin therapy to atorvastatin therapy due to interaction. Advised to maintain adequate hydration. Orthostatic precautions were discussed. Will follow up in the clinic in 1 year's time, sooner p.r.n.. Thank you for allowing me to partake in his care Coding Level of Care Code Est Pt Level 4 (52712) Diagnoses Paroxysmal atrial fibrillation I48.0 HTN (hypertension) I10
[2023-12-15 12:31] VITALS: BP 138/72; PULSE 62; BMI 21.9
== END 2023-12-15 12:47 | disposition home or self-care (01) ==
PROVIDERS: PCP Internal Medicine; Visit Provider Internal Medicine Cardiovascular Disease
DX: I48.0 Paroxysmal atrial fibrillation (principal); I10 Essential (primary) hypertension
CPT/HCPCS: 99214

== ENCOUNTER → 2023-12-15 12:15 | Outpatient (BNVA) | payer MEDICARE, SELFPAY | PROVIDERS: PCP Internal Medicine; Visit Provider Internal Medicine Cardiovascular Disease | DX: I48.0 Paroxysmal atrial fibrillation (principal); I10 Essential (primary) hypertension | CPT/HCPCS: 99212 ==

== ENCOUNTER 2024-12-14 12:11 | Outpatient (AMB) | payer MEDICARE, SELFPAY ==
[2024-12-14 12:31] VITALS: BP 146/76; PULSE 59; BMI 21.2
--- NOTE | 2024-12-14 12:31 | A.OFFVIS_ITS ---
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 Overall she has been doing well from cardiac perspective. She says couple of days ago she had a little some P feeling but not able to describe any clear prolonged palpitation or skipped heartbeats. Her blood pressure generally are well controlled at home and below 130 systolic. She has no symptoms of exertional shortness of breath or chest pain. No orthopnea, PND, leg edema. No lightheadedness, syncope. No bleeding issues PFSH Medical History Acute UTI Orthostatic hypotension New onset a-fib Hyperlipidemia HTN (hypertension) Surgical History History of lung surgery Family History Father Diabetes Mother No problems noted. Social History Household Members: Spouse Housing: House Do you presently have visiting nurse or other home services: No Patient Tobacco Use Status: Never used Tobacco service: No Review of Systems Const Denies chills, Denies fatigue, Denies fever(s), Denies frequent falls, Denies weakness, Denies weight gain and Denies weight loss ENT Denies dizziness Card Denies chest pain, Denies leg edema, Denies lightheadedness, Denies palpitations, Denies dyspnea, Denies dyspnea on exertion, Denies orthopnea and Denies other (loss of consciousness) Resp Denies cough, Denies dyspnea and Denies dyspnea on exertion GI Denies hematochezia and Denies change in stool character Musc Denies abnormal gait, Denies muscle weakness, Denies numbness, Denies radiating pain into limb and Denies tingling Neuro Denies abnormal gait, Denies dizziness, Denies frequent falls, Denies numbness, Denies tingling and Denies weakness Endo Denies fatigue and Denies palpitations Physical Exam Const General: cooperative, comfortable, no acute distress, alert, awake, Physically active and well groomed Nutritional Appearance: average body habitus Orientation/consciousness: patient oriented x3 Neck Neck: Yes trachea midline, Yes supple and Yes no JVD Resp Effort & Inspection: normal respiratory effort Auscultation: clear to auscultation bilaterally Cardio Jugular venous distension: no JVD Palpation: normal PMI Rate: regular rate Rhythm: regular rhythm Heart sounds: S1 normal heart sound present, S2 normal heart sound present, no click, no gallops and Murmur heart sound present systolic GI Auscultation: normal bowel sounds Skin General skin exam: no rashes or lesions noted Neuro General: patient oriented x3 and no focal motor deficits Office Procedures EKG Details: EKG shows normal sinus rhythm at 59 beats per minute with poor R-wave progression most likely lead placement otherwise normal EKG [id number], Complete Assessment & Plan Assessment & Plan (1) Paroxysmal atrial fibrillation: Code(s): I48.0 - Paroxysmal atrial fibrillation Category: Medical Plan: Symptomatic paroxysmal atrial fibrillation with some jumpy feeling few days ago although not clear palpitation. This is unclear. She has no obvious long episodes of atrial fibrillation. We advised to continue with rhythm control approach. Baseline heart rate is on the lower side will avoid rate lowering medications. Continue full oral anticoagulation, currently on Eliquis 5 mg b.i.d.. Rationale be on oral anticoagulation therapy was discussed. Continue aggressive risk factor modification. Advised to call me with new symptoms. No indication for antiarrhythmic drug therapy. Recommend semi annual renal function test to assess for dosing for Eliquis. She wants to pursue this through your office (2) HTN (hypertension): Code(s): I10 - Essential (primary) hypertension Category: Medical Plan: Hypertension which on today's exam is slightly elevated although she says blood pressure at home is very well controlled. Continue current amlodipine therapy. Advised to monitor blood pressure at home maintain a log. Goal blood pressure less than 130/84. Low-salt diet was discussed. Stress mitigation strategies was discussed. She understands agrees. Will follow up in the clinic in 1 year's time, sooner p.r.n.. Coding Level of Care Code Est Pt Level 4 (13930) Complex EM visit Add On G2211 Diagnoses Paroxysmal atrial fibrillation I48.0 HTN (hypertension) I10 CPT Codes EKG - CPT: 99628-[id number], Complete ([id number])
--- OUTSIDE RECORDS SUMMARY | 2024-12-14 13:06 | XMS_ITS | Clinical Summary ---
Author Organization [address] [place] [address] [place] [id number] Phone Care Team Providers Care Experiential Therapist Name Role Phone Joy Brumfield MD Primary Care Provider [phone] Allergies No known active allergies Medications estradioL (ESTRACE) 0.01 % (0.1 mg/gram) vaginal cream 01/20/2024 Activ e cholecalciferol (VITAMIN D-3) 25 mcg (1,000 unit) capsule Take 2 capsules (2,000 Units total) by mouth 1 (one) time each day. 06/10/2024 Active amLODIPine (NORVASC) 5 mg tablet TAKE 1 TABLET AT BEDTIME 90 tablet 1 07/29/2024 Active simvastatin (ZOCOR) 20 mg tablet Take 1 tablet (20 mg total) by mouth at bedtime. 90 tablet 1 09/01/2024 Active apixaban (ELIQUIS) 5 mg tablet Take 1 tablet (5 mg total) by mouth 2 (two) times a day. 180 tablet 1 11/09/2024 Active Active Problems Problem Noted Date Diagnosed Date Atrial fibrillation ([facility] V24, CMS/[facility] V28) 0 10/24/2023 Prediabetes 01/16/2023 Osteopenia 01/13/2023 CKD (chronic kidney disease) stage 3, GFR 30-59 ml/min (CMS/HCC V24, CMS/[facility] V28) 06/17/2019 Hyperlipidemia 08/17/2012 Essential hypertension, benign 02/10/2006 History of basal cell carcinoma Overview (08/12/2024): BCC 02/07 forehead; middle and left (nodular) 12/07 nose (nodular) 06/08 right shoulder (nodular & superficial) 11/04 right forearm (nodular, ulcerated) 06/07 right side of face (nodular) 11/02 right jaw (infiltrative) 06/01 nose (micronodular) left roman catholic x 2 (nodular) 01/28 left forearm (nodular) 09/23 right shoulder (nodular) left thigh (supe* History of dysplastic nevus Overview (08/12/2024): Dysplastic nevi left posterior thorax (mild atypia) right foot (focal moderate atypia) right posterior thorax (moderate to focal severe atypia) History of malignant melanoma of skin Overview (08/12/2024): Malignant melanoma 10/19 left foot (atypical melanocytic lesion highly suggestive of malignant melanoma in situ) IMO update Encounters Date Type Department Care Team Description 11/09/2024 Telephone Adult Medicine [address] [id number] Joy Brumfield MD from Last 3 Months Immunizations Name Administration Dates Next Due COVID-19 (Pfizer/Comirnaty) 12yo and older 02/09/2023,02/09/2023 Influenza Quadravalent, 0.5m l (Fluzone High-dose) 65yo and older 01/15/2022 Influenza Quadravalent, MDCK , 0.5ml, with preservative (Flucelvax) 6mo and older 04/02/2017 Influenza trivalent, 0.5mL ( Fluad) 65yo and older 01/13/2023,01/11/2019,03/30/2018 Influenza trivalent, 0.5mL, preservative free (Fluarix; FluLaval; Fluzone) ages 6mo and older (Afluria) 3 years and older 01/17/2016,02/16/2015,02/04/2013,01/29,03/04/2011 Influenza, Unspecified 02/03/2024,02/07/2021 Bauzaar Covid-19 Bivalent, Or iginal + Ba.1 (Non-US Trademark COMIRNATY Bivalent) 01/15/2022 Pneumococcal conjugate 13 va lent (Prevnar 13, PCV13) 2mo and older 01/17/2016,01/17/2016 Pneumococcal polysaccharide 23 valent (Pneumovax 23) 2yo and older 03/04/2011 RSV, bivalent, protein subun it RSVpreF, 0.5mL, Preservative Free (Arexvy) 60yo and older 02/24/2023 Td Tetanus diptheria (Tdvax) 7yo and older 05/26/2018 Tdap Tetanus diptheria acell ular pertussis (Boostrix; Adacel) 7yo and older 08/25/2007 Zoster Live 01/30/2012 Zoster recombinant (Shingrix ) 19yo and older 11/23/2019,06/02/2019 Surgical History Surgery Date Site/Laterality Comments WISDOM TOOTH EXTRACTION CATARACT EXTRACTION 04/2014 Bilateral OTHER SURGICAL HISTORY collapsed lung in her 40s with recurrence COLONOSCOPY 06/16/2017 : tics; would not repeat Medical History Medical History Date Comments History of dysplastic nevus 02/08/2010 Dysp lastic nevi left posterior thorax (mild atypia) right foot (focal moderate atypia) right posterior thorax (moderate to focal severe atypia) History of malignant melanoma of skin 02/10/2006 Malignant melanoma 10/19 left foot (atypical melanocytic lesion highly suggestive of malignant melanoma in situ) IMO update History of basal cell carcinoma 02/08/2010 BCC 02/07 forehead; middle and left (nodular) 12/07 nose (nodular) 06/08 right shoulder (nodular & superficial) 11/04 right forearm (nodular, ulcerated) 06/07 right side of face (nodular) 11/02 right jaw (infiltrative) 06/01 nose (micronodular) left roman catholic x 2 (nodular) 01/28 left forearm (nodular) 09/23 right shoulder (nodular) left thigh (supe* Essential hypertension, benign 02/10/2006 History of squamous cell car cinoma of skin SCC 06/08 left cheek (in situ ) Atrial fibrillation (CMS/HCC V24, CMS/HCC V28) 10/24/2023 CKD (chronic kidney disease) stage 3, GFR 30-59 ml/min (CMS/HCC V24, CMS/HCC V28) 06/17/2019 Prediabetes 01/16/2023 Osteopenia 01/13/2023 Family History Medical History Relation Name Comments Diabetes Father dementia, arthr itis Arthritis Mother of PE at 8 5 Breast cancer Neg Hx Colon cancer Neg Hx Ovarian cancer Neg Hx Uterine cancer Neg Hx Relation Name Status Comments Father Maternal Grandfather Maternal Grandmother Mother Paternal Grandfather Paternal Grandmother Social History Tobacco Use Types Packs/Day Years Used Date Smoking Tobacco: Former Cigarettes 0.5 15 1 06/19/1959 - 1975 Smokeless Tobacco: Never Tobacco Cessation:Counseling Given: Not Answered Alcohol Use Standard Drinks/Week Comments Yes 0 (1 standard drink = 0.6 oz pur e alcohol) Comments No Sex and Gender Information Value Date Recorded Sex Assigned at Not on file Legal Sex Female 2:59 AM EST Gender Identity Not on file Sexual Orientation Not on file Obstetrics History Last Filed Vital Signs Vital Sign Reading Time Taken Comments Blood Pressure 132/60 09/01/2024 4:15 PM EDT Pulse 62 09/01/2024 4:00 PM EDT Temperature 36 C (96.8 F) 09/01/2024 4:00 PM EDT Respiratory Rate 14 09/01/2024 4:00 PM EDT Oxygen Saturation 98% 09/01/2024 4:00 PM EDT Inhaled Oxygen Concentration - - Weight 57.7 kg (127 lb 3.2 oz) 09/01/2024 4:00 P M EDT Height 165.1 cm (5' 5 ) 09/01/2024 4:00 PM EDT Body Mass Index 21.17 09/01/2024 4:00 PM EDT Plan of Treatment Upcoming Encounters Date Type Department Care Team (Late st Contact Info) Description 03/04/2025 11:00 AM EST Office Visit Adult Medicine [facility] [address] [place] [phone] Maria L Bower PA [address], [place] Health Maintenance Due Date Last Done Comments Depression Screening 04/21/2024 COVID-19 Vaccine (6 - Pfizer risk season) 2024 02/03/2024, 02/09/2023, 02/09/2023, Additional history exists Medicare Annual Wellness Visit 08/06/2024 08/07/2023 Influenza Vaccine (#1) 2024 , 01/13/2023, 01/15/2022, Additional history exists Falls Risk Assessment 05/12/2025 05/12/2024 Social Influencers of Health Screening 05/12/2025 05/12/2024 Hypertension/CHF/CAD Annual BMP Blood Test 08/02/2025 08/02/2024, 02/09/2024, 02/09/2024, Additional history exists DTaP,Tdap,and Td Vaccines (3 - Td or Tdap) 05/26/2028 05/26/2018, 08/25/2007 Cholesterol Screening (Lipid Panel) 02/08/2029 02/09/2024, 02/09/2024 Osteoporosis Screening (Bone Density Screening) 03/18/2033 03/18/2023, 05/31/2020 Hepatitis C Screening Completed 02/18/2013 Pneumococcal Vaccine: 50+ Years Completed 01/17/2016, 01/17/2016, 03/04/2011 Zoster Vaccines Completed 11/23/2019, 05/22, 01/30/2012 RSV Immunization Adult Patients Completed 02/24/2023 HIB Vaccines Aged Out No longer eligi ble based on patient's age to complete this topic HPV Vaccines Aged Out No longer eligi ble based on patient's age to complete this topic Hepatitis A Vaccines Aged Out No long er eligible based on patient's age to complete this topic Hepatitis B Vaccines Aged Out No long er eligible based on patient's age to complete this topic IPV Vaccines Aged Out No longer eligi ble based on patient's age to complete this topic MMR Vaccines Aged Out No longer eligi ble based on patient's age to complete this topic Meningococcal ACWY Vaccine Aged Out N o longer eligible based on patient's age to complete this topic Meningococcal B Vaccine Aged Out No l onger eligible based on patient's age to complete this topic RSV Immunization Patients Under 20 months Aged Out No longer eligible based on patient's age to complete this topic Varicella Vaccines Aged Out No longer eligible based on patient's age to complete this topic Procedures Procedure Name Priority Date/Time Associated Diagnosis Comments COMPREHENSIVE METABOLIC PANEL Routine 08/02/2024 7:52 AM EDT Atrial fibrillation, unspecified type ([facility]/HCC V24, [facility]/HCC V28) Stage 3a chronic kidney disease ([facility]/HCC V24, [facility] V28) Essential hypertension, benign Hyperlipidemia, unspecified hyperlipidemia type Osteopenia, unspecified location Prediabetes LIPID PANEL Routine 02/09/2024 DXA BONE DENSITY STUDY 1+ SITS AXIAL SKEL Routine 03/18/2023 11:01 AM EST Other specified disorders of bone density and structure, unspecified site HEPATITIS C SCREENING Routine 02/18/2013 from Last 3 Months or Most Recently Relevant to Health Maintenance Results * (ABNORMAL) Comprehensive metabolic panel (08/02/2024 7:52 AM EDT) Sodium 141 133 - 145 mmol/L LAB CHEMISTRY METHOD 08/02/2024 12:35 PM [facility] Potassium 3.6 3.5 - 5.5 mmol/L LAB CHEMISTRY METHOD 08/02/2024 12:35 PM [facility] Chloride 106 96 - 110 mmol/L LAB CHEMISTRY METHOD 08/02/2024 12:35 PM [facility] CO2 30 21 - 32 mmol/L LAB CHEMISTRY METHOD 08/02/2024 12:35 PM [facility] Anion Gap 5 3 - 11 LAB CHEMISTRY METHOD 08/02/2024 12:35 PM [facility] Glucose 105(H) 70 - 100 mg/dL LAB CHEMISTRY METHOD 08/02/2024 12:35 PM [facility] BUN 18 5 - 25 mg/dL LAB CHEMISTRY METHOD 08/02/2024 12:35 PM [facility] Creatinine 0.95 0.50 - 1.10 mg/dL LAB CHEMISTRY METHOD 08/02/2024 12:35 PM [facility] eGFR 61 >=60 mL/min/1. 73m2 LAB CHEMISTRY METHOD 08/02/2024 12:35 PM EDT [facility] Comment:Calculation based on the Chronic Kidney Disease Epidemiology Collaboration (CKD-EPI) equation refit without adjustment for race. BUN/Creatinine Ratio 18.9 LAB CHEMISTRY METHOD 08/02/2024 12:35 PM [facility] Calcium 9.7 8.5 - 10.5 mg/dL LAB CHEMISTRY METHOD 08/02/2024 12:35 PM T [facility] AST (SGOT) 18 10 - 42 unit/L LAB CHEMISTRY METHOD 08/02/2024 12:35 PM [facility] ALT (SGPT) 22 10 - 60 unit/L LAB CHEMISTRY METHOD 08/02/2024 12:35 PM [facility] Alkaline Phosphatase 60 42 - 121 unit/L LAB CHEMISTRY METHOD 08/02/2024 12:35 PM [facility] Total Protein 6.8 6.0 - 8.0 g/dL LAB CHEMISTRY METHOD 08/02/2024 12:35 PM [facility] Albumin 3.6 3.2 - 5.0 g/dL LAB CHEMISTRY METHOD 08/02/2024 12:35 PM [facility] Total Bilirubin 0.8 0.0 - 1.4 mg/dL LAB CHEMISTRY METHOD 08/02/2024 12:35 PM [facility] Blood Venous blood specimen / Unknown Venipuncture / Unknown 08/02/2024 7:52 AM EDT 08/02/2024 7:53 AM EDT us Maria L NASCIMENTO LAB BLOOD ORDERABLES Final Re sult [facility] [address] [place] [address], * Lipid panel (02/09/2024) LDL/HDL Ratio 2 0 - 4 Triglycerides 60 0 - 150 mg/dL Cholesterol 176 0 - 200 mg/dL HDL 86 >=40 mg/dL LDL Cholesterol 78 0 - 100 mg/dL Blood Venous blood specimen / Unknown us Historical Provider LAB BLOOD ORDERABLES Dennise l Result * DXA BONE DENSITY STUDY 1+ SITS AXIAL SKEL (03/18/2023 11:01 AM EST) Anatomical Region Laterality Modality Bone Densitometr y 01/13/2023 3:04 PM EDT Narrative 03/18/2023 12:45 PM EST BONE DENSITY (DEXA) Lumbar Spine T-score is -0.8. (SD relative to 20-29 y/o adult) Z-score is 1.8. (SD relative to age matched peers) This is considered normal by WHO criteria. Left Hip T-score is -1.3. Z-score is 0.9. This is considered osteopenia by WHO criteria. Lateral view of the spine demonstrates vertebral heights to be maintained. IMPRESSION: This patient is considered to have osteopenia by WHO criteria. This patient has a 19% risk of major osteoporotic fracture and a 10.0% risk of hip fracture over the next 10 years. (World Health Organization Fracture Risk Assessment) The [facility] Department of Internal Medicine recommends using National Osteoporosis Foundation (NOF) guidelines in treatment decisions related to osteoporosis. NOF guidelines suggest considering treatment for postmenopausal women and men aged 50 or older presenting with the following: History of hip or vertebral fracture. T-score = -2.5 (DXA) at the femoral neck, total hip, or spine, after appropriate evaluation to exclude secondary causes. Low bone mass (T-score between -1.0 and -2.5 at the femoral neck or spine) AND a 10-year probability of a hip fracture = 3% OR a 10-year probability of a major osteoporosis-related fracture = 20% based on the [place]-adapted WHO algorithm Please note that all treatment decisions require clinical judgment and consideration of individual patient factors, including patient preferences, co-morbidities, previous drug use, risk factors not captured in the FRAX model (e.g., frailty, falls, vitamin D deficiency, increased bone turnover, interval significant decline in bone density) and possible under- or over-estimation of fracture risk by FRAX. Optional alternative screening schedule based on lui Mcleod., [facility] May 09, 2011 for patients with osteopenia (based on hip BMD T-score) is as follows: * advanced osteopenia (T scores -2.00 to -2.49), BMD testing every year * moderate osteopenia (T scores -1.50 to -1.99), BMD testing every 5 years mild osteopenia or normal BMD (T scores -1.50 and higher), BMD testing every 15 years Procedure Note Aster Mcneil MD - 05/27/2023 BONE DENSITY (DEXA) Lumbar Spine T-score is -0.8. (SD relative to 20-29 y/o adult) Z-score is 1.8. (SD relative to age matched peers) This is considered normal by WHO criteria. Left Hip T-score is -1.3. Z-score is 0.9. This is considered osteopenia by WHO criteria. Lateral view of the spine demonstrates vertebral heights to bemaintained. IMPRESSION: This patient is considered to have osteopenia by WHO criteria. Thispatient has a 19% risk of major osteoporotic fracture and a 10.0% risk of hip fracture over the next10 years. (World Health Organization Fracture Risk Assessment) [facility] Department of Internal Medicinerecommends using National Osteoporosis Foundation (NOF) guidelines in treatment decisionsrelated to osteoporosis. NOF guidelines suggest considering treatment forpostmenopausal women and men aged 50 or older presenting with the following: History of hip or vertebral fracture. T-score = -2.5 (DXA) at the femoral neck, total hip, or spine, afterappropriate evaluation to exclude secondary causes. Low bone mass (T-score between -1.0 and -2.5 at the femoral neck or spine)AND a 10-year probability of a hip fracture = 3% OR a 10-year probability of a majorosteoporosis-related fracture = 20% based on the [place]-adapted WHO algorithm Please note that all treatment decisions require clinical judgment andconsideration of individual patient factors, including patient preferences, co- morbidities,previous drug use, risk factors not captured in the FRAX model (e.g., frailty, falls, vitaminD deficiency, increased bone turnover, interval significant decline in bone density) andpossible under- or over-estimation of fracture risk by FRAX. Optional alternative screening schedule based on shahzad Mcleod al., NEJMJanuary 2011 for patients with osteopenia (based on hip BMD T-score) is as follows: * advanced osteopenia (T scores -2.00 to -2.49), BMD testing every year * moderate osteopenia (T scores -1.50 to -1.99), BMD testing every 5years mild osteopenia or normal BMD (T scores -1.50 and higher), BMD testingevery 15 years Maria L NASCIMENTO IMG DXA PROCEDURES Final Resu lt * Hepatitis C Screening (02/18/2013) [facility] Hepatitis C Screening abstracted Historical Provider HEALTH MAINTENANCE Final Result from Last 3 Months or Most Recently Relevant to Health Maintenance Insurance [facility] MEDICARE ADVANTAGE Care Teams Experiential Therapist Relationship Specialty Start Date End Date Joy Brumfield MD [address] [place] [address] PCP - General Internal Medicine 09/04/20
--- OUTSIDE RECORDS SUMMARY | 2024-12-14 13:06 | XMS_ITS ---
Author Name [facility] Organization Unknown Care Team Organization Name Specialty Phone Email Start Date End Da te [facility] Joy Brumfield Primary Care 02/26/2022
== END 2024-12-14 13:05 | disposition home or self-care (01) ==
LOC: HO.HCS 12:12
PROVIDERS: PCP Internal Medicine; Visit Provider Internal Medicine Cardiovascular Disease
DX: I48.0 Paroxysmal atrial fibrillation (principal); I10 Essential (primary) hypertension
CPT/HCPCS: 93010; 99214; G2211

== ENCOUNTER → 2024-12-14 12:11 | Outpatient (BNVA) | payer MEDICARE, SELFPAY | PROVIDERS: PCP Internal Medicine; Visit Provider Internal Medicine Cardiovascular Disease | DX: I48.0 Paroxysmal atrial fibrillation (principal) | CPT/HCPCS: 93005; 99212 ==

== ENCOUNTER 2025-02-26 14:44 | Emergency (ER) | payer MEDICARE, SELFPAY ==
--- NOTE | ~2025-02-26 | CT_ITS ---
CLINICAL HISTORY: trauma, fall, neck pain CT cervical spine without contrast Comparison: None Findings: Normal limited view of the intracranial contents. Soft tissues of the neck are normal. Lung apices are normal. Normal vertebral body alignment. No fractures or dislocations. Cervical degenerative changes are present, more significant C5-7.. Impression: 1. No cervical vertebral fracture or traumatic malalignment. This document has been electronically signed by: Jared Hahn MD on 02/26/2025 16:46:38
--- NOTE | ~2025-02-26 | CT_ITS ---
CLINICAL HISTORY: trauma, on eliquis, headache CT head without contrast Comparison: None Findings: No intracranial mass, midline shift, hydrocephalus, or acute hemorrhage. No CT evidence of acute ischemia. Visualized paranasal sinuses and mastoid air cells normal. Orbits unremarkable. No skull fracture. Trace soft tissue emphysema involving frontal scalp (4; 20), is in keeping with small laceration or scalp injury. Impression: 1. No acute intracranial abnormalities. This document has been electronically signed by: Jared Hahn MD on 02/26/2025 16:47:18
--- NOTE | ~2025-02-26 | CT_ITS ---
CLINICAL HISTORY: trauma, facial pain CT maxillofacial without contrast Comparison: None Findings: No fractures. Paranasal sinuses and mastoid air cells clear. Orbits normal. Temporomandibular joints intact. Visualized intracranial contents are normal. Soft tissues reveal minimal soft tissue emphysema overlying left frontal scalp common keeping with scalp injury or small laceration. Impression: 1. No maxillofacial fractures. This document has been electronically signed by: Jared Hahn MD on 02/26/2025 16:47:11
[2025-02-26 14:48] VITALS: BP 177/77; PULSE 61; RESP 18; TEMP 36.3; O2SAT 100; BMI 21.2
--- NOTE | 2025-02-26 14:50 | ED.GENADULT ---
HPI - General Adult General Chief complaint: Fall Stated complaint: fall head facial inj Time Seen by Provider: 02/26/25 16:26 History of Present Illness HPI narrative: Patient is 79-year-old female status post accidental fall. Patient is on Eliquis. Taking it for atrial fibrillation. She tripped and hit the top of her head. Hit her face. There is no loss of consciousness. Remembers the event. Sent to the ED for further evaluation. There is no chest pain there is no nausea no vomiting there is no abdominal pain moving all extremities well. Related Data Home Medications ?Medication ?Instructions ?Recorded ?Confirmed amlodipine 5 mg tablet 5 mg PO DAILY 10/17/23 12/14/24 ammonium lactate 12 % lotion 1 appl topical DAILY PRN dry, 10/17/23 12/14/24 scaly skin simvastatin 20 mg tablet 20 mg PO BEDTIME 10/17/23 12/14/24 Previous Rx's ?Medication ?Instructions ?Recorded apixaban 5 mg tablet (Eliquis) 5 mg PO BID #60 tabs 10/18/23 Allergies Allergy/AdvReac Type Severity Reaction Status Date / Time No Known Allergies Allergy Verified 02/26/25 14:51 Review of Systems Review of Systems: Positive head injury Yes all other systems are reviewed and are negative PMFSH Past Medical History Attestation statement: The following information was validated with the patient. Medical History Acute UTI Orthostatic hypotension New onset a-fib Hyperlipidemia HTN (hypertension) Surgical History History of lung surgery Family History Family History Father Diabetes Mother No problems noted. Social History Social History Household Members: Spouse Housing: House Do you presently have visiting nurse or other home services: No Patient Tobacco Use Status: Never used Tobacco Smoked in Last 30 Days: No Use of substances other than those prescribed or required for medical reasons: No Advance Directives: No Advance Directives Information Provided: Yes service: No Physical Exam ED Exam Exam: Appearance: Alert. Oriented X3. No acute distress. Eyes: Pupils equal, round and reactive to light. Positive laceration to the forehead approximately 3 cm in size ENT: Pharynx normal. There is no midface tenderness there is no malocclusion noted. Neck: Normal inspection. Neck supple. No lymph nodes noted. No crepitus. Trachea is midline there is no posterior C-spine tenderness on palpation there is no crepitus CVS: Normal heart rate and rhythm. Pulses normal. Normal S1 and S2 Respiratory: No respiratory distress. Breath sounds normal. No Wheezing. No rales. No crepitus no chest wall tenderness no clavicular tenderness Abdomen: Soft and nontender. No rigidity. No distention. good BS x4 Skin: Skin warm and dry. Normal skin color. Normal skin turgor. Extremities: No lower extremity edema. Neurovascular intact to all extremities. No Lacerations. No Rash Neuro: Oriented X 3. No motor deficit. No sensory deficit. Moving all extermities. No slurred speech Vital Signs: Vital Signs - 24 hr 02/26/25 14:48 02/26/25 15:17 02/26/25 15:31 Temperature 97.3 F 98.1 F 98.1 F Pulse Rate 61 63 63 Respiratory Rate 18 16 Blood Pressure 177/77 H 174/69 H 174/69 H Pulse Oximetry 100 100 100 Oxygen Delivery Method Room Air Room Air 02/26/25 16:25 Temperature 98.2 F Pulse Rate 56 Respiratory Rate 16 Blood Pressure 179/61 H Pulse Oximetry 100 Oxygen Delivery Method Room Air BMI result Body Mass Index 21.2 Course Course Course Narrative: Medical screening exam performed. Please refer to detailed history, exam, evaluation, and management by primary provider. Patient with mechanical trip and fall earlier this morning. Went to urgent Care, x-ray demonstrating possible nasal fracture. Has a laceration to forehead. On Eliquis. No LOC. Acting at baseline. Unknown last tetanus. Check imaging. Status post recent Mohs surgery on the right cheek. Refused Tylenol. JS Medications Administered Discontinued Medications Generic Name Dose Route Start Last Admin Trade Name Freq PRN Reason Stop Dose Admin Diphtheria/Tetanus/Acell Pertussis 0.5 ml 02/26/25 14:57 02/26/25 15:37 Diphth,Pertus(Acell),Tet Adult 0.5 Ml Syringe IM 02/26/25 14:58 0.5 ml .ONCE ONE Administration Procedures Laceration Forehead laceration: Site: face (Forehead laceration approximately 3 cm) Size (cm): 3 Description: linear Technique: skin adhesive Medical Decision Making Medical Decision Making [facility] Narrative: CT scan of the head by my interpretation is grossly negative I reviewed radiology's reading of the CT C-spine CT face both were negative. Patient is well-appearing no distress. Baseline electrolytes and CBC. Will discharge patient home no septal hematoma noted patient's bleeding is controlled wound is closed using Dermabond in stable condition will discharge home head injury precaution. Differential Diagnosis Differential Diagnoses: The differential diagnosis associated with the presentation includes Laceration to the face, head injury, fracture, intracranial bleed Admission/Observation Consideration of admission/observation: Escalation of care including admission/observation considered Lab Data [facility] Lab Attestation statement: I reviewed the patient's lab results. 02/26/25 17:19 02/26/25 17:19 Labs: Lab Results 02/26/25 Range/Units 17:19 WBC 8.7 (4.8-10.8) X10*3/uL RBC 3.98 L (4.20-5.50) X10*6/uL Hgb 11.5 L (12.0-16.0) g/dl Hct 34.7 L (37.0-47.0) % MCV 87.2 (80.0-98.0) fL MCH 28.9 (27.0-33.0) pg MCHC 33.1 (31.0-35.0) g/dl RDW 12.8 (11.0-16.0) % Plt Count 153 L (160-400) X10*3/uL MPV 10.6 (9.4-12.3) fL Immature Gran % (Auto) 0.2 (0.0-0.4) % Neut % (Auto) 66.5 (45-73) % Lymph % (Auto) 24.7 (20-40) % [place] % (Auto) 5.9 (2-11) % Eos % (Auto) 2.2 (0-4) % Baso % (Auto) 0.5 (0-2) % Lymph # (Auto) 2.1 (1.2-4.9) X10*3/uL [place] # (Auto) 0.5 (0.1-1.2) X10*3/uL Eos # (Auto) 0.2 (0.0-0.4) X10*3/uL Baso # (Auto) 0.0 (0.0-0.2) X10*3/uL Abs Immat Gran (auto) 0.02 (0.00-0.03) X10*3/uL Absolute Neuts (auto) 5.8 (2.0-8.3) x10*3/uL Absolute Nucleated RBC 0.000 (0.0-0.012) X10*3/uL Nucleated RBC % (auto) 0.0 (0.0-0.2) /100WBC Smear Tech's Comments VERIFIED Sodium 141 (135-145) mmol/L Potassium 3.7 (3.3-5.1) mmol/L Chloride 109 H (96-108) mmol/L Carbon Dioxide 21 L (22-29) mmol/L Anion Gap 15 (12-20) BUN 29 H (9-16) mg/dL Creatinine 1.04 (0.5-1.4) mg/dL Estim Creat Clear Calc 37.8 Estimated GFR 51 Random Glucose 119 H (60-115) mg/dL Calcium 9.3 (8.4-10.2) mg/dL Independent Interpretation I performed an independent interpretation of an: CT Scan (CT head negative for bleed) Radiology Impression Discussion of test interpretation with radiology: I have reviewed the radiologist's reading. Independent Historian Clinical information obtained from an independent historian. History obtained from or confirmed by: Spouse External Record Review External record reviewed: Office record Chronic Conditions History of AFib on Eliquis Social Determinants Patient?s care significantly limited by Social Determinants of Health including: Problems related to primary support group Discharge Plan Discharge Clinical Impression: Head injury, Face lacerations Patient Disposition: Home, Self-Care Instructions: Laceration (DC), Head Injury (DC), Skin Adhesive Care (ED) Prescriptions: No Action ammonium lactate 12 % lotion 1 appl topical DAILY PRN (Reason: dry, scaly skin) amlodipine 5 mg tablet 5 mg PO DAILY simvastatin 20 mg tablet 20 mg PO BEDTIME Eliquis 5 mg Tablet 5 mg PO BID Qty: 60 0RF Referrals: Joy Brumfield MD [Primary Care Provider, Internal Medicine] - 02/28/25 Print Language: Montenegrin
[2025-02-26 15:17] VITALS: BP 174/69; PULSE 63; TEMP 36.7; O2SAT 100
[2025-02-26 15:31] VITALS: BP 174/69; PULSE 63; RESP 16; TEMP 36.7; O2SAT 100
--- NOTE | 2025-02-26 15:33 | PC.NURSE ---
Patient presents to ED after fall at home from tripping over car david Patient hit face on concrete Patient went to urgent care, xray performed there and possible nasal fx noted with head lac Patient on eliquis Denies LOC, SOB,c/p, vision changes, n/v Patient denies pain in face but is complaining of pain in left wrist +CMS +ROM Patient pmh HTN BP 170/62 Patient takes BP meds at night Plan of care on going
[2025-02-26] MEDS: Diphth,Pertus(ACell),Tet Adult 0.5 ML SYRINGE IM (15:37)
--- OUTSIDE RECORDS SUMMARY | 2025-02-26 15:38 | XMS_ITS | Clinical Summary ---
Author Organization [address] [place] [address] [place] [phone] Phone Care Team Providers Care Volleyball Assistant Coach Name Role Phone Joy Brumfield MD Primary Care Provider [phone] Allergies No known active allergies Medications estradioL (ESTRACE) 0.01 % (0.1 mg/gram) vaginal cream 01/20/2024 Activ e cholecalciferol (VITAMIN D-3) 25 mcg (1,000 unit) capsule Take 2 capsules (2,000 Units total) by mouth 1 (one) time each day. 06/10/2024 Active simvastatin (ZOCOR) 20 mg tablet Take 1 tablet (20 mg total) by mouth at bedtime. 90 tablet 1 09/01/2024 Active apixaban (ELIQUIS) 5 mg tablet Take 1 tablet (5 mg total) by mouth 2 (two) times a day. 180 tablet 1 11/09/2024 Active amLODIPine (NORVASC) 5 mg tablet Take 1 tablet (5 mg total) by mouth at bedtime. 90 tablet 01/24/2025 Active Active Problems Problem Noted Date Diagnosed Date Atrial fibrillation ([facility]/HCC V24, CMS/[facility] V28) 0 10/24/2023 Prediabetes 01/16/2023 Osteopenia 01/13/2023 CKD (chronic kidney disease) stage 3, GFR 30-59 ml/min (CMS/HCC V24, CMS/[facility] V28) 06/17/2019 Hyperlipidemia 08/17/2012 Essential hypertension, benign 02/10/2006 History of basal cell carcinoma Overview (08/12/2024): BCC 02/07 forehead; middle and left (nodular) 12/07 nose (nodular) 06/08 right shoulder (nodular & superficial) 11/04 right forearm (nodular, ulcerated) 06/07 right side of face (nodular) 11/02 right jaw (infiltrative) 06/01 nose (micronodular) left rastafarian x 2 (nodular) 01/28 left forearm (nodular) [...] Encounters Date Type Department Care Team Description 02/08/2025 Telephone Adult Medicine [address] [phone] Joy Brumfield MD 01/14/2025 9:00 AM EDT Office Visit Adult Medicine [address] [phone] Maria L Bower PA Encounter for annual wellness visit (AWV) in Medicare patient (Primary Dx); Constipation, unspecified constipation type 01/12/2025 Nurse Triage Adult Medicine [address] [phone] Joy Brumfield MD from Last 3 Months Immunizations Immunization Administration Dates Next Due COVID-19 (Pfizer/Comirnaty) 12yo and older 02/09/2023,02/09/2023 Influenza Quadravalent, 0.5m l (Fluzone High-dose) 65yo and older 01/15/2022 Influenza Quadravalent, MDCK , 0.5ml, with preservative (Flucelvax) 6mo and older 04/02/2017 Influenza trivalent, 0.5mL ( Fluad) 65yo and older 01/14/2025,01/13/2023,01/11/2019,03/30 Influenza trivalent, 0.5mL, preservative free (Fluarix; FluLaval; Fluzone) ages 6mo and older (Afluria) 3 years and older 01/17/2016,02/16/2015,02/04/2013,01/29,03/04/2011 Influenza, Unspecified 02/03/2024,02/07/2021 Pfizer Covid-19 Bivalent, Or iginal + Ba.1 (Non-US Trademark COMIRNATSmule Bivalent) 01/15/2022 Pneumococcal conjugate 13 va lent (Prevnar 13, PCV13) 2mo and older 01/17/2016,01/17/2016 Pneumococcal polysaccharide 23 valent (Pneumovax 23) 2yo and older 03/04/2011 RSV, bivalent, protein subun it RSVpreF, 0.5mL, Preservative Free (Arexvy) 50yo and older 02/24/2023 Td Tetanus diptheria (Tdvax) [...] right jaw (infiltrative) 06/01 nose (micronodular) left rastafarian x 2 (nodular) 01/28 left forearm (nodular) 09/23 right shoulder (nodular) left thigh (supe* Essential hypertension, benign 02/10/2006 History of squamous cell car cinoma of skin SCC 06/08 left cheek (in situ ) Atrial fibrillation ([facility] V24, [facility] V28) 10/24/2023 CKD (chronic kidney disease) stage 3, GFR 30-59 ml/min ([facility] V24, [facility] V28) 06/17/2019 Prediabetes 01/16/2023 Osteopenia 01/13/2023 Family [...] drink = 0.6 oz pur e alcohol) Housing Instability Answer Date Recorde d Are you worried that in the next 2 months you may not have stable housing? No 01/14/2025 Food Access & Nutrition Answer Date Rec orded Do you have access to a vari ety of food including fruits and vegetables? Yes 01/14/2025 Access to Healthcare Answer Date Record ed Within the last 3 months, ho juan francisco many times did you visit the emergency department for your medical care? 0 01/14/2025 Health Literacy Answer Date Recorded How often do you need to hav e someone help you when you read instructions, pamphlets, or other written material from your doctor or pharmacy? Never 01/14/2025 Caregiver: How often do you need to have someone help you when you read instructions, pamphlets, or other written material from your doctor or pharmacy? Not on file 01/14/2025 Financial Risk Answer Date Recorded How hard is it for you to pa y for the very basics like food, housing, medical care, and air conditioning / heating? Not very hard 01/14/2025 Transportation Answer Date Recorded Has the lack of transportati on kept you from meetings, work, or from getting things needed for daily living? No Has the lack of transportati on kept you from medical appointments or from getting medications? No 01/14/2025 Social Isolation Answer Date Recorded How often do you feel lonely or isolated from th ose around you? Never 01/14/2025 Food Risk Answer Date Recorded Within the past 12 months we worried whether our food would run out before we got money to buy more. Never true 01/14/2025 Within the past 12 months th e food we bought just didn't last and we didn't have money to get more. Never true 01/14/2025 Dependent Care Answer Date Recorded Do you need help finding or paying for care for your loved ones. For example, early childhood worker or elderly care for an older adult? No 01/14/2025 Education Answer Date Recorded Do you think completing more education or training, like finishing a GED, going to college, or learning a trade, would be helpful for you? N/A 01/14/2025 Employment and Income Answer Date Recor ded During the last four weeks, have you been actively looking for work? No 01/14/2025 Living Situation Answer Date Recorded What is your living situation? Unrecognized valu e 01/14/2025 Comments No Sex and Gender Information Value Date Recorded Sex Assigned at Not on file Legal Sex Female 2:59 AM EST Gender Identity Not on file Sexual Orientation Not on file Obstetrics History Last Filed Vital Signs Vital Sign Reading Time Taken Comments Blood Pressure 142/60 01/14/2025 9:23 AM EDT Pulse 57 01/14/2025 9:04 AM EDT Temperature 36.2 C (97.1 F) 01/14/2025 9:03 AM EDT Respiratory Rate 14 01/14/2025 9:03 AM EDT Oxygen Saturation 99% 01/14/2025 9:03 AM EDT Inhaled Oxygen Concentration - - Weight 56.2 kg (124 lb) 01/14/2025 9:03 AM EDT Height 166.4 cm (5' 5.5 ) 01/14/2025 9:03 AM EDT Body Mass Index 20.32 01/14/2025 9:03 AM EDT Plan of Treatment Upcoming Encounters Date Type Department Care Team (Late st Contact Info) Description 03/04/2025 11:00 AM EST Office Visit Adult Medicine [facility] [address], [place] [phone] Maria L Bower PA [address], [place] Health Maintenance Due Date Last Done Comments COVID-19 Vaccine (6 - Pfizer risk 2023- season) 2024 02/03/2024, 02/09/2023, 02/09/2023, Additional history exists Osteoporosis Screening (Bone Density Screening) 03/18/2025 03/18/2023, 05/31/2020 Hypertension/CHF/CAD Annual BMP Blood Test 08/02/2025 08/02/2024, 02/09/2024, 02/09/2024, Additional history exists Falls Risk Assessment 01/14/2026 01/14/2025 , 01/14/2025, 05/12/2024 Medicare Annual Wellness Visit 01/14/2026 01/14/2025, 08/07/2023 Social Influencers of Health Screening 01/14/2026 01/14/2025, 05/12/2024 DTaP,Tdap,and Td Vaccines (3 - Td or Tdap) 05/26/2028 05/26/2018, 08/25/2007 Cholesterol Screening (Lipid Panel) 02/08/2029 02/09/2024, 02/09/2024 Hepatitis C Screening Completed 02/18/2013 Pneumococcal Vaccine: 50+ Years Completed 01/17/2016, 01/17/2016, 03/04/2011 Zoster Vaccines Completed 11/23/2019, 05/22, 01/30/2012 RSV Immunization Adult Patients Completed 02/24/2023 Depression Screening Completed 01/14/2025 Influenza Vaccine Completed 01/14/2025, , 01/13/2023, Additional history exists HIB Vaccines Aged Out No longer eligi [...] 7:52 AM EDT Atrial fibrillation, unspecified type (CMS/HCC V24, CMS/HCC V28) Stage 3a chronic kidney disease (CMS/HCC V24, CMS/HCC V28) Essential hypertension, benign Hyperlipidemia, unspecified hyperlipidemia [...] mmol/L LAB CHEMISTRY METHOD 08/02/2024 12:35 PM EDT [facility] Potassium 3.6 3.5 - 5.5 mmol/L LAB CHEMISTRY METHOD 08/02/2024 12:35 PM EDT [facility] Chloride 106 96 - 110 mmol/L LAB CHEMISTRY METHOD 08/02/2024 12:35 PM EDT [facility] CO2 30 21 - 32 mmol/L LAB CHEMISTRY METHOD 08/02/2024 12:35 PM [facility] Anion Gap 5 3 - 11 LAB CHEMISTRY METHOD 08/02/2024 12:35 PM [facility] Glucose 105(H) 70 - 100 mg/dL LAB CHEMISTRY METHOD 08/02/2024 12:35 PM [facility] BUN 18 5 - 25 mg/dL LAB CHEMISTRY METHOD 08/02/2024 12:35 PM [facility] Creatinine 0.95 0.50 - 1.10 mg/dL LAB CHEMISTRY METHOD 08/02/2024 12:35 PM [facility] eGFR 61 >=60 mL/min/1. 73m2 LAB CHEMISTRY METHOD 08/02/2024 12:35 PM [facility] Comment:Calculation based on the Chronic Kidney Disease Epidemiology Collaboration (CKD-EPI) equation refit without adjustment for race. BUN/Creatinine Ratio 18.9 LAB CHEMISTRY METHOD 08/02/2024 12:35 PM [facility] Calcium 9.7 8.5 - 10.5 mg/dL LAB CHEMISTRY METHOD 08/02/2024 12:35 PM [facility] AST (SGOT) 18 10 - 42 unit/L LAB CHEMISTRY METHOD 08/02/2024 12:35 PM [facility] ALT (SGPT) 22 10 - 60 unit/L LAB CHEMISTRY METHOD 08/02/2024 12:35 PM [facility] Alkaline Phosphatase 60 42 - 121 unit/L LAB CHEMISTRY METHOD 08/02/2024 12:35 PM [facility] Total Protein 6.8 6.0 - 8.0 g/dL LAB CHEMISTRY METHOD 08/02/2024 12:35 PM [facility] Albumin 3.6 3.2 - 5.0 g/dL LAB CHEMISTRY METHOD 08/02/2024 12:35 PM [facility] Total Bilirubin 0.8 0.0 - 1.4 mg/dL LAB CHEMISTRY METHOD 08/02/2024 12:35 PM EDT [facility] Blood Venous blood specimen / Unknown Venipuncture / Unknown 08/02/2024 7:52 AM EDT 08/02/2024 7:53 AM EDT Maria L NASCIMENTO LAB BLOOD ORDERABLES Final Re sult [facility] ([facility]) [facility] [address] [place] [address], [place] [phone] * Lipid panel (02/09/2024) LDL/HDL Ratio 2 0 - 4 Triglycerides 60 0 - 150 mg/dL Cholesterol 176 0 - 200 mg/dL HDL 86 >=40 mg/dL LDL Cholesterol 78 0 - 100 mg/dL Blood Venous blood specimen / Unknown Historical Provider MD LAB BLOOD ORDERABLES Dennise l Result * [...] (World Health Organization Fracture Risk Assessment) [facility] recommends using National [...] alternative screening schedule based on lui [facility] May 09, 2011 for patients with osteopenia [...] (World Health Organization Fracture Risk Assessment) [facility] of Internal Medicinerecommends using National Osteoporosis [...] alternative screening schedule based on lui [facility] for patients with [facility]openia (based on [...] Resu lt * Hepatitis C Screening (02/18/2013) [facility] Hepatitis C Screening abstracted Historical Provider HEALTH MAINTENANCE Final Result from Last 3 Months or Most Recently Relevant to Health Maintenance Insurance [employer] - [place] MEDICARE ADVANTAGE Care Teams Volleyball Assistant Coach Relationship Specialty Start Date End Date Joy Brumfield MD [address] [place] [phone] PCP - General Internal Medicine 09/04/20
[2025-02-26 16:25] VITALS: BP 179/61; PULSE 56; RESP 16; TEMP 36.8; O2SAT 100
[2025-02-26 17:24] LABS: Lymphocytes Absolute Auto 2.1 X10*3/uL (1.2-4.9); NRBC Abs Auto 0.000 X10*3/uL (0.0-0.012); NRBC Pct Auto 0.0 /100WBC (0.0-0.2); PLT CLUMP 1; SCAN SMEAR FLAG 1
[2025-02-26 17:26] LABS: Hematocrit 34.7 % (37.0-47.0); Hemoglobin 11.5 g/dl (12.0-16.0); Imm Gran Abs Auto 0.02 X10*3/uL (0.00-0.03); Imm Gran Pct Auto 0.2 % (0.0-0.4); MANUAL DIFF FLAG SCAN; Mean Corpuscular HGB Conc 33.1 g/dl (31.0-35.0); Mean Corpuscular Hemoglobin 28.9 pg (27.0-33.0); Mean Corpuscular Volume 87.2 fL (80.0-98.0); Red Blood Count 3.98 X10*6/uL (4.20-5.50)
[2025-02-26 17:35] LABS: Anion Gap 15 (12-20); Blood Urea Nitrogen 29 mg/dL (9-16); Calcium 9.3 mg/dL (8.4-10.2); Carbon Dioxide 21 mmol/L (22-29); Chloride 109 mmol/L (96-108); Creatinine Clr Calc Pharmacy 37.8; Estimated Glomerular Filt Rate 51; Potassium 3.7 mmol/L (3.3-5.1); Sodium 141 mmol/L (135-145)
[2025-02-26 17:57] LABS: Platelet Count 153 X10*3/uL (160-400); White Blood Count 8.7 X10*3/uL (4.8-10.8)
[2025-02-26 18:21] VITALS: BP 180/64; PULSE 65; RESP 16; TEMP 36.8; O2SAT 100
== END 2025-02-26 18:35 | disposition home or self-care (01) ==
PROVIDERS: Emergency Provider Emergency Medicine Emergency Medical Services; PCP Internal Medicine
DX: S01.81XA Laceration without foreign body of other part of head, initial encounter (principal); S09.90XA Unspecified injury of head, initial encounter; I48.91 Unspecified atrial fibrillation; I10 Essential (primary) hypertension; Z79.01 Long term (current) use of anticoagulants; W01.0XXA Fall on same level from slipping, tripping and stumbling without subsequent striking against object, initial encounter; Y93.9 Activity, unspecified; Y92.9 Unspecified place or not applicable; Y99.9 Unspecified external cause status; Z23 Encounter for immunization
CPT/HCPCS: 12013; 36415; 70450; 70486; 72125; 80048; 85025; 90471; 90715; 99284

== ENCOUNTER → 2025-02-26 14:50 | Outpatient (BNV) | payer MEDICARE, SELFPAY | PROVIDERS: Emergency Provider Emergency Medicine Emergency Medical Services; PCP Internal Medicine; Visit Provider Radiology Diagnostic Radiology | DX: M54.2 Cervicalgia (principal); R51.9 Headache, unspecified; Z04.3 Encounter for examination and observation following other accident | CPT/HCPCS: 70450; 70486; 72125 ==